=== PATIENT | male | born 1960 | race Caucasian/White ===

== ENCOUNTER 2022-12-14 21:30 | Inpatient (IN) ==
--- NOTE | 2022-12-14 21:49 | Emergency Department Note ---
HPI General Chief complaint: Extremity Problem,Nontraumatic Stated complaint: edema to lower extremeties Time Seen by Provider: 12/14/22 21:46 Source: patient Mode of arrival: wheelchair Limitations: physical limitation History of Present Illness HPI Narrative: Narrative: Patient presents ED with complaints of bilateral leg swelling x3 days. He states that he was diagnosed with a blood clot in his leg a couple days agoT. He states he was started on a blood thinner. However he does not know the name of the blood thinner he is on. When asked what hospital diagnosed with a blood clot he states it was not a hospital. when asked upon further questioning he said it was his friend who diagnosed him a lot. He states that he has heart failure and has been out of his water pill for 3 days. He states that his legs are now weeping and again he states is because of a blood clot. He denies cardiac chest pain, heart palpitation, hemoptysis, shortness of breath, cough, sputum production. Patient states he has not called his PCP. Patient denies any other alleviating or aggravating factors. Related Data Allergies Allergy/AdvReac Type Severity Reaction Status Date / Time No Known Drug Allergies Allergy Unverified 12/14/22 22:10 Review of Systems ROS ROS Narrative: Narrative: All systems ED: reviewed and negative except as stated. [facility] Narrative Patient History Narrative: Narrative: Medical/Surgical/Family History All Active Problems (Updated 12/14/22 @ 23:39 by Yuriy Steen DO) Sepsis (Acute) CHF exacerbation (Acute) Bilateral pleural effusion (Acute) Pneumonia (Acute) Social History Smoking Status: Current every day smoker Exam Narrative Narrative: Narrative: General Limitations: physical limitation General appearance: Absent in distress ENT ENT: Present normal oropharynx and mucous membranes moist Chest Chest: Present normal inspection; Absent tenderness Respiratory Respiratory: Present normal lung sounds bilaterally; Absent respiratory distress, wheezes or stridor Cardiovascular Cardiovascular: Present normal rhythm and tachycardia Adbominal Abdominal: Present soft and normal bowel sounds; Absent tenderness Extremities Extremities: Present normal inspection; Absent tenderness Expanded Lower Extremity Lower leg: Present swelling and erythema; Absent tenderness Neurological Neurological: Present alert and oriented X3 Psychiatric Psychiatric: Present normal affect and normal mood Skin Skin: Present warm (WNL) and intact Course Course Course Narrative: Patient was evaluated for bilateral lower extremity edema. Ultrasound of the bilateral lower extremity negative for DVT. Patient was fluid overloaded and chest x-ray showed that he did have a pneumonia and some bilateral pleural effusion. Blood cultures were obtained and patient was started on IV Rocephin and oral azithromycin. He was also given IV Lasix of 20 mg due to his soft blood pressure. However his blood pressure did improve to 130 systolically. Patient was tachypneic, tachycardic and had elevated white cell count. Did meet sepsis criteria. Patient maintain adequate oxygen saturation on room air without any hypoxia. EKG was unremarkable. Due to his CHF exacerbation and pneumonia with fluid overload and BNP over 10,000 recommend the patient be admitted to the hospital. Case was discussed with hospitalist was agreed to admit the patient. Plan of care was discussed with patient expressed verbal understanding and agreement. Reevaluation(s) Reevaluation #1: Patient remains hemodynamically stable. No new complaints at this time Time: 22:50 Consultations Consultation #1: Case discussed with hospitalist, Dr. Trujillo, who has agreed to admit the patient to the hospital Time: 23:50 Vital Signs Vital signs: Vital Signs Temperature 97.1 F 12/14/22 21:31 Pulse Rate 118 H 12/14/22 21:31 Respiratory Rate 20 12/14/22 21:31 Blood Pressure 74/50 12/14/22 21:31 Pulse Oximetry (%) 98 12/14/22 21:31 Oxygen Delivery Method Room Air 12/14/22 21:31 Temperature 97.1 F 12/14/22 21:31 Pulse Rate 40 L 12/14/22 23:37 Respiratory Rate 37 H 12/14/22 23:37 Blood Pressure 134/119 12/14/22 23:37 Pulse Oximetry (%) 97 12/14/22 23:37 Oxygen Delivery Method Room Air 12/14/22 21:31 [facility] MDM Narrative Medical decision making narrative: Narrative: Sepsis Sepsis Identified: Yes Time Zero: 2239 Differential Diagnosis Differential Diagnosis: CHF exacerbation, DVT Medical Records Medical records reviewed: Yes I reviewed the patient's medical records. Lab Data Lab results reviewed: Yes I reviewed the patient's lab results. 12/14/22 22:02 Labs: Lab Results 12/14/22 12/14/22 12/14/22 Range/Units 21:47 21:48 22:01 WBC (4.5-11.0) K/mcL RBC (4.63-6.08) M/mcL Hgb (13.7-17.5) g/dL Hct (40.1-51.0) % POC Hct 47.0 (41-55) MCV (80.0-100.0) fL MCH (26.0-34.0) pg MCHC (31.0-36.0) g/dL RDW (11.5-14.5) % Plt Count (140-440) K/mcL MPV (8.8-12.5) fL Immature Gran % (Auto) (0.0-0.5) % Neut % (Auto) (38.0-78.0) % Lymph % (Auto) (15.5-49.0) % [place] % (Auto) (1.0-12.0) % Eos % (Auto) (0.0-7.0) % Baso % (Auto) (0.0-2.0) % Lymph # (Auto) (1.50-4.80) K/mcL [place] # (Auto) (0.10-0.90) K/mcL Eos # (Auto) (0.00-0.70) K/mcL Baso # (Auto) (0.00-0.30) K/mcL Immature Gran # (0.00-0.05) K/mcl Absolute Neutrophils (1.80-8.00) K/mcL POC Sodium 134 (133-145) POC Potassium 5.0 (3.3-5.1) POC Chloride 106 (96-108) POC Total CO2 22.0 (22-30) POC BUN 49 H (6-20) POC Creatinine 2.9 H (0.6-1.2) POC Glucose 115 H (70-105) POC WB Ioniz Calcium 1.09 L (1.16-1.32) NT-Pro-B Natriuret Pep 50321.0 H (<125.0) pg/mL POC Troponin I 0.06 (0.00-0.08) 12/14/22 12/14/22 Range/Units 22:02 22:16 WBC 17.4 H (4.5-11.0) K/mcL RBC 5.53 (4.63-6.08) M/mcL Hgb 14.9 (13.7-17.5) g/dL Hct 46.1 (40.1-51.0) % POC Hct (41-55) MCV 83.4 (80.0-100.0) fL MCH 26.9 (26.0-34.0) pg MCHC 32.3 (31.0-36.0) g/dL RDW 19.2 H (11.5-14.5) % Plt Count 297 (140-440) K/mcL MPV 10.3 (8.8-12.5) fL Immature Gran % (Auto) 1.9 H (0.0-0.5) % Neut % (Auto) 78.3 H (38.0-78.0) % Lymph % (Auto) 13.5 L (15.5-49.0) % [place] % (Auto) 5.2 (1.0-12.0) % Eos % (Auto) 0.8 (0.0-7.0) % Baso % (Auto) 0.3 (0.0-2.0) % Lymph # (Auto) 2.35 (1.50-4.80) K/mcL [place] # (Auto) 0.91 H (0.10-0.90) K/mcL Eos # (Auto) 0.14 (0.00-0.70) K/mcL Baso # (Auto) 0.06 (0.00-0.30) K/mcL Immature Gran # 0.33 H (0.00-0.05) K/mcl Absolute Neutrophils 13.61 H (1.80-8.00) K/mcL POC Sodium (133-145) POC Potassium (3.3-5.1) POC Chloride (96-108) POC Total CO2 (22-30) POC BUN (6-20) POC Creatinine (0.6-1.2) POC Glucose (70-105) POC WB Ioniz Calcium (1.16-1.32) NT-Pro-B Natriuret Pep (<125.0) pg/mL POC Troponin I 0.04 (0.00-0.08) ED POC Tests ED POC Tests: ELISA - Influenza A Negative ELISA - Influenza B Negative ELISA - SARS Antigen Negative Radiology Data Radiology results reviewed: Yes I reviewed the patient's radiology results. Radiology results narrative: Obtained with image reviewed myself concerning for pneumonia and pleural effusion Bilateral lower extremity venous ultrasound obtained, no acute DVT EKG Data EKG #1: EKG attestation: Yes I reviewed and interpreted this EKG. Rate: tachycardia Rhythm: A.Fib [place]/QRS: left axis deviation Heart block present: None ST segment elevation in: None ST segment depression in: None QTc: prolonged Interpretation: no acute changes and nonspecific ST-T wave changes Core Measures AMI Core Measures Followed: Yes Discharge Plan Patient/Caregiver Discharge Instructions Pt seen by TRANSFERRER/PA only: No Clinical Impression: Sepsis, CHF exacerbation, Bilateral pleural effusion, Pneumonia Patient Disposition: Xfer As Outpt/Obs ([facility]) Condition: Fair Follow up with: No,PCP [Primary Care Provider] -
[2022-12-14 21:53] LABS: POC Calcium, Ionized 1.09 (1.16-1.32); POC Creatinine 2.9 (0.6-1.2)
[2022-12-14 22:27] LABS: Basophils # (Auto) 0.06 K/mcL (0.00-0.30); Basophils % (Auto) 0.3 % (0.0-2.0); Eosinophils # (Auto) 0.14 K/mcL (0.00-0.70); Eosinophils % (Auto) 0.8 % (0.0-7.0); Hematocrit 46.1 % (40.1-51.0); Hemoglobin 14.9 g/dL (13.7-17.5); Lymphocytes # (Auto) 2.35 K/mcL (1.50-4.80); Lymphocytes % (Auto) 13.5 % (15.5-49.0); Mean Cell Volume 83.4 fL (80.0-100.0); Mean Corpuscular HGB Conc 32.3 g/dL (31.0-36.0); Mean Platelet Volume 10.3 fL (8.8-12.5); Monocytes # (Auto) 0.91 K/mcL (0.10-0.90); Monocytes % (Auto) 5.2 % (1.0-12.0); Neutrophils % (Auto) 78.3 % (38.0-78.0); Platelet Count 297 K/mcL (140-440); RBC 5.53 M/mcL (4.63-6.08); Red Cell Distribution Width 19.2 % (11.5-14.5); WBC 17.4 K/mcL (4.5-11.0)
[2022-12-14] MEDS ORDERED: FUROSEMIDE 20 MG/2 ML VIAL IV ONE (23:01)
[2022-12-14] MEDS ORDERED: FUROSEMIDE 100 MG/10 ML VIAL IV ONE (23:01)
[2022-12-14] MEDS ORDERED: AZITHROMYCIN 250 MG TABLET PO ONE (23:36)
[2022-12-14] MEDS ORDERED: cefTRIAXone 2 GM in DEXTROSE 5% IN WATER 50 ML IV ONE (23:36)
[2022-12-14] MEDS ORDERED: PROMETHAZINE 25 MG/ML VIAL IM PRN (23:53)
[2022-12-14] MEDS ORDERED: ONDANSETRON 4 MG/2 ML VIAL IV PRN (23:53)
[2022-12-15] MEDS ORDERED: DOPamine 400 MG in PREMIX 1 BAG IV SCH (01:30)
[2022-12-15] MEDS: 0.9 % SODIUM CHLORIDE 10 ML SYRINGE IV SCH ×6 (02:00→23:53)
[2022-12-15] MEDS: ACETAMINOPHEN 325 MG TABLET PO PRN ×2 (02:25→09:19)
--- NOTE | 2022-12-15 02:53 | Ultrasound Report ---
CLINICAL INFORMATION: Bilateral pain and swelling erythema in the lower examination COMPARISON: None. FINDINGS: The entire deep venous system, of both lower extremities, including the common femoral, superficial femoral, popliteal and paired trifurcation calf veins are easily compressible and show normal venous blood flow on color and spectral Doppler. No evidence of thrombus IMPRESSION: No evidence of deep vein thrombosis in either lower extremity. Mildly enlarged benign appearing inguinal lymph nodes seen bilaterally. These are likely reactive lymph nodes due to cellulitis Interpreted and Authenticated by: Roshan Russell 12/15/22
--- NOTE | 2022-12-15 02:58 | XRay Report ---
CLINICAL INFORMATION: Shortness of breath COMPARISON: 10/21/2022 TECHNIQUE: Portable FINDINGS: Moderate cardiomegaly is unchanged. Aortic valve prostheses in stable position. There is a wire fragment overlying the left ventricular border which is presumably from a prior pacemaker. Mediastinum and pulmonary vessels are normal. Azygos lobe noted in the right upper lung-a normal variant. Small region of airspace disease seen in the left base is likely developing infiltrate. A small right pleural effusion noted. IMPRESSION: Small left basilar infiltrate. Suggest follow-up two-view chest x-ray next 1-2 days to better assess the lower lobes Interpreted and Authenticated by: Roshan Russell 12/15/22
[2022-12-15] MEDS: 0.9 % SODIUM CHLORIDE 250 ML IV SCH ×2 (06:34→13:32)
[2022-12-15] MEDS ORDERED: ACETAMINOPHEN 325 MG TABLET PO PRN (07:40)
[2022-12-15] MEDS ORDERED: LACTULOSE 20 GM/30 ML ORAL.SOL PO PRN (07:40)
[2022-12-15] MEDS ORDERED: SENNOSIDES 1 TABLET PO PRN (07:40)
[2022-12-15 08:52] LABS: Basophils # (Auto) 0.05 K/mcL (0.00-0.30); Basophils % (Auto) 0.4 % (0.0-2.0); Eosinophils # (Auto) 0.16 K/mcL (0.00-0.70); Eosinophils % (Auto) 1.2 % (0.0-7.0); Hematocrit 44.8 % (40.1-51.0); Hemoglobin 14.5 g/dL (13.7-17.5); Lymphocytes # (Auto) 2.63 K/mcL (1.50-4.80); Lymphocytes % (Auto) 20.1 % (15.5-49.0); Mean Cell Volume 82.8 fL (80.0-100.0); Mean Corpuscular HGB Conc 32.4 g/dL (31.0-36.0); Mean Platelet Volume 10.4 fL (8.8-12.5); Monocytes # (Auto) 0.76 K/mcL (0.10-0.90); Monocytes % (Auto) 5.8 % (1.0-12.0); Neutrophils % (Auto) 71.8 % (38.0-78.0); Platelet Count 297 K/mcL (140-440); RBC 5.41 M/mcL (4.63-6.08); Red Cell Distribution Width 19.7 % (11.5-14.5); WBC 13.1 K/mcL (4.5-11.0)
[2022-12-15] MEDS ORDERED: LEVOFLOXACIN 750 MG/150 ML BAG IV SCH (09:00)
[2022-12-15 09:04] LABS: Blood Urea Nitrogen 44 mg/dL (6-20); Calcium 8.2 mg/dL (8.6-10.4); Carbon Dioxide 18 mmol/L (22-30); Chloride 101 mmol/L (96-108); Glomerular Filtration Rate 28; Glucose 78 mg/dL (70-105)
[2022-12-15] MEDS: DOCUSATE SODIUM 100 MG CAPSULE PO SCH ×2 (09:20→21:06)
[2022-12-15] MEDS: ENOXAPARIN 40 MG/0.4 ML SYRINGE SQ SCH (09:20)
[2022-12-15] MEDS: ASPIRIN 81 MG TAB.CHEW PO SCH (09:20)
--- NOTE | 2022-12-15 09:27 | Internal Med History&Physical ---
HPI History of Present Illness Patient information: Note initiated : 12/15/22 at 9:18 am Service Date, if different from initiated Date: [] Patient: Billy Gomez 62 y/o M admitted on 12/15/22 for edema to lower extremeties. Chief Complaint: [Weakness, FTT] Chief complaint: Pedal edema History of present illness: Mr. Gomez is a 62 year old obese male smoker with a complex past medical history significant for congestive heart failure, COPD, mitral valve repair, diabetes mellitus type 2 and BPH who presents to the hospital with vague complaints. When I evaluated the patient this morning, he was not able to talk much due to oral thrush. In general, the patient is quite a poor historian. History is mainly obtained through chart review and from nursing. He presented to the ER complaining of worsening pedal edema due to what he believed was VTE. There is no history of the patient recently being prescribed anticoagulation therapy. Venous duplex was obtained on presentation which was negative for VTE in both extremities. On arrival, the patient was hemodynamically tenuous as he was hypotensive with an SBP in the 70s and 80s and was tachycardic with a heart rate of 110. He was found to have an elevated white blood cell count of 17.4 and a creatinine of 2.9. The hospitalist service was asked admit the patient for further management and evaluation of his suspected sepsis of unclear etiology. Review of Systems All systems: reviewed and no additional remarkable complaints except as stated Constitutional Constitutional: Present as per HPI EENT Eyes: Present as per HPI; Absent blurry vision Cardiovascular Cardiovascular: Present as per HPI; Absent chest pain, dyspnea, dyspnea on exertion, leg edema or palpatations Respiratory Respiratory: Present as per HPI; Absent cough, dyspnea, dyspnea on exertion, wheezing or stridor Gastrointestinal Gastrointestinal: Present as per HPI; Absent abdominal pain, diarrhea, dysphagia, hematemesis, melena, nausea or vomiting Musculoskeletal Musculoskeletal: Present as per HPI; Absent joint swelling, limited range of motion, muscle cramps, muscle weakness or myalgias Integumentary Integumentary: Present as per HPI; Absent erythema, new lesions, rash or wounds Neurological Neurological: Present as per HPI; Absent abnormal gait, behavioral changes, focal weakness, headache(s), loss of vision, numbness, sensory deficit or syncope Endocrine Endocrine: Absent change in body appearance, fatigue or heat intolerance Hematologic/Lymphatic Hematologic/Lymphatic: Present as per HPI PFSH PFSH All Active Problems (Updated 12/15/22 @ 09:25 by Shayy Amador MD) Smoker (Acute) COPD exacerbation (Acute) DM2 (diabetes mellitus, type 2) (Acute) Congestive heart failure (Acute) Pedal edema (Acute) Hypotension (Acute) AGUILA (acute kidney injury) (Acute) Cellulitis (Acute) Sepsis (Acute) CHF exacerbation (Acute) Bilateral pleural effusion (Acute) Pneumonia (Acute) Social History smoking status: Current every day smoker MEDS/ALLERGIES Home Medications and Allergies Home Medications Medication Instructions Recorded Confirmed Type Jardiance 10 mg PO DAILY 12/15/22 12/15/22 History acetaminophen 325 mg capsule 500 mg PO Q6H PRN Pain 12/15/22 12/15/22 History (Tylenol) aspirin 81 mg capsule 81 mg PO DAILY 12/15/22 12/15/22 History atorvastatin 40 mg tablet 40 mg PO QHS 12/15/22 12/15/22 History budesonide-formoterol HFA 160 2 puff inhalation Q12H 12/15/22 12/15/22 History mcg-4.5 mcg/actuation aerosol inhaler cetirizine 10 mg tablet 10 mg PO QDAY 12/15/22 12/15/22 History famotidine 20 mg tablet 20 mg PO BID 12/15/22 12/15/22 History metoprolol succinate 25 mg 25 mg PO BID 12/15/22 12/15/22 History tablet,extended release 24 hr naproxen 500 mg tablet 500 mg PO BID 12/15/22 12/15/22 History nitroglycerin 0.4 mg sublingual 0.4 mg sublingual Q5M PRN Chest 12/15/22 12/15/22 History tablet Pain potassium chloride 30 mEq/15 mL 30 meq PO BID 12/15/22 12/15/22 History oral liquid sacubitril 24 mg-valsartan 26 mg 0.5 tab PO BID 12/15/22 12/15/22 History tablet (Entresto) spironolactone 25 mg tablet 12.5 mg PO DAILY 12/15/22 12/15/22 History torsemide 40 mg tablet 40 mg PO QDAY 12/15/22 12/15/22 History Allergies Allergy/AdvReac Type Severity Reaction Status Date / Time No Known Drug Allergies Allergy Unverified 12/14/22 22:10 EXAM Constitutional Vitals: Temp Pulse Resp BP Pulse Ox O2 Del Method O2 Flow Rate 97.0 F 55 L 26 H 82/56 97 Nasal Cannula 1 12/15/22 08:01 12/15/22 06:01 12/15/22 09:07 12/15/22 09:07 12/15/22 09:07 12/15/22 09:07 12/15/22 09:07 General appearance: average body habitus Head Head exam: Present atraumatic, normal inspection and normocephalic Eye Eye exam: Present EOMI, normal appearance and PERRL; Absent conjunctival injection ENT ENT exam: Present mucous membranes dry Neck Neck exam: Present full ROM; Absent lymphadenopathy Respiratory Respiratory exam: Present normal respiratory exam and CTAB; Absent decreased breath sounds, respiratory distress or wheezes Cardiovascular Cardiovascular exam: Present RRR and tachycardia; Absent JVD GI/Abdominal GI/Abdominal exam: Present normal bowel sounds, soft and distended; Absent diminished bowel sounds, guarding, mass, rebound or tenderness Neurological Exam Neurological exam: Absent alert Psychiatric Psychiatric exam: Present normal affect and normal mood Skin Skin exam: Present intact and warm; Absent erythema, pallor, petechiae or rash DATA Data Completed and Pending Labs: Labs from last 24 hours 12/15/22 12/15/22 12/15/22 08:42 07:55 07:55 WBC RBC Hgb Hct POC Hct MCV MCH MCHC RDW Plt Count MPV Immature Gran % (Auto) Neut % (Auto) Lymph % (Auto) [place] % (Auto) Eos % (Auto) Baso % (Auto) Lymph # (Auto) [place] # (Auto) Eos # (Auto) Baso # (Auto) Immature Gran # Absolute Neutrophils POC pH 7.38 POC pCO2 31.5 L POC pO2 79 L POC HCO3 18.9 L POC ABG Base Excess -6.0 L ABG Lactic Acid 0.8 VBG Lactic Acid 1.0 Hgb O2 Saturation 96.0 POC Sodium Sodium 132 L POC Potassium Potassium 4.8 POC Chloride Chloride 101 Carbon Dioxide 18 L POC Total CO2 20.0 L Anion Gap 13.0 POC BUN BUN 44 H Creatinine 2.4 H POC Creatinine GFR Calculation 28 Glucose 78 POC Glucose Calcium 8.2 L POC WB Ioniz Calcium NT-Pro-B Natriuret Pep POC Troponin I 12/15/22 12/14/22 12/14/22 07:55 22:16 22:02 WBC 13.1 H 17.4 H RBC 5.41 5.53 Hgb 14.5 14.9 Hct 44.8 46.1 POC Hct MCV 82.8 83.4 MCH 26.8 26.9 MCHC 32.4 32.3 RDW 19.7 H 19.2 H Plt Count 297 297 MPV 10.4 10.3 Immature Gran % (Auto) 0.7 H 1.9 H Neut % (Auto) 71.8 78.3 H Lymph % (Auto) 20.1 13.5 L [place] % (Auto) 5.8 5.2 Eos % (Auto) 1.2 0.8 Baso % (Auto) 0.4 0.3 Lymph # (Auto) 2.63 2.35 [place] # (Auto) 0.76 0.91 H Eos # (Auto) 0.16 0.14 Baso # (Auto) 0.05 0.06 Immature Gran # 0.09 H 0.33 H Absolute Neutrophils 9.42 H 13.61 H POC pH POC pCO2 POC pO2 POC HCO3 POC ABG Base Excess ABG Lactic Acid VBG Lactic Acid Hgb O2 Saturation POC Sodium Sodium POC Potassium Potassium POC Chloride Chloride Carbon Dioxide POC Total CO2 Anion Gap POC BUN BUN Creatinine POC Creatinine GFR Calculation Glucose POC Glucose Calcium POC WB Ioniz Calcium NT-Pro-B Natriuret Pep POC Troponin I 0.04 12/14/22 12/14/22 12/14/22 22:01 21:48 21:47 WBC RBC Hgb Hct POC Hct 47.0 MCV MCH MCHC RDW Plt Count MPV Immature Gran % (Auto) Neut % (Auto) Lymph % (Auto) [place] % (Auto) Eos % (Auto) Baso % (Auto) Lymph # (Auto) [place] # (Auto) Eos # (Auto) Baso # (Auto) Immature Gran # Absolute Neutrophils POC pH POC pCO2 POC pO2 POC HCO3 POC ABG Base Excess ABG Lactic Acid VBG Lactic Acid Hgb O2 Saturation POC Sodium 134 Sodium POC Potassium 5.0 Potassium POC Chloride 106 Chloride Carbon Dioxide POC Total CO2 22.0 Anion Gap POC BUN 49 H BUN Creatinine POC Creatinine 2.9 H GFR Calculation Glucose POC Glucose 115 H Calcium POC WB Ioniz Calcium 1.09 L NT-Pro-B Natriuret Pep 74960.0 H POC Troponin I 0.06 Preliminary micro results at discharge 12/14/22 00:09 Blood Culture - Preliminary Blood A/P Assessment and plan (1) Sepsis: Status: Acute Qualifiers: Sepsis acute organ dysfunction status: without acute organ dysfunction Sepsis type: sepsis due to unspecified organism Qualified Code(s): A41.9 - Sepsis, unspecified organism (2) Pneumonia: Status: Acute Qualifiers: Laterality: unspecified laterality Lung location: unspecified part of lung Pneumonia type: due to unspecified organism Qualified Code(s): J18.9 - Pneumonia, unspecified organism (3) Cellulitis: Status: Acute (4) AGUILA (acute kidney injury): Status: Acute (5) Hypotension: Status: Acute (6) Pedal edema: Status: Acute (7) Congestive heart failure: Status: Acute (8) DM2 (diabetes mellitus, type 2): Status: Acute (9) COPD exacerbation: Status: Acute (10) Smoker: Status: Acute Narrative A/P Narrative: The patient presents as a septic picture as he is hypotensive, tachycardic, with an elevated white blood cell count of 17,000. His lower extremities are erythematous, edematous, warm to touch and tender upon palpation. He does have areas of skin breakdown. A CT of the chest was performed this morning which was concerning for lower lobe infiltrates in the setting of groundglass opacities however the final radiology read is pending. His antibiotic coverage will be broadened from Levaquin to Zosyn. We will perform MRSA screen and follow-up with blood cultures. The patient has not needed dopamine infusion which was prescribed overnight. In the setting of hypotension and AGUILA, we are holding his home Entresto, Aldactone, torsemide and Toprol-XL. Continue IV fluid resuscitation. The patient's lactic acid was within normal limits at 1.0 today. Monitor on telemetry. He will be kept n.p.o. in case he needs BiPAP as he has a history of COPD and continues to smoke. His ABG was reassuring with a pH of 7.38, PCO2 of 31.5, and PaO2 of 79. Time Spent With Patient Time: Total time spent is greater than 50% in coordination of care (as documented) at patient's floor/unit and/or counseling patient: Initial: Total time with patient: 75 - 90 minutes Critical Care Time: Yes QUALITY Stroke Symptom Onset Unknown: No VTE Deep Vein Thrombosis/Pulmonary Embolism Present on Admission: No
--- NOTE | 2022-12-15 09:47 | Cat Scan Report ---
CLINICAL INFORMATION: Dyspnea. Current smoker. COMPARISON: CTA chest abdomen and pelvis 06/08/2019 TECHNIQUE: 0.625 mm helical slices were obtained from the lung apices through the lung bases. Following reconstruction, 2.5 mm sagittal, coronal and axial reformatted images were processed and reviewed at multiple windows and levels. 7 mm MIP reconstructions were obtained through the lungs to optimize nodule detection.The exam was performed using radiation dose optimization techniques including, but not limited to, automated exposure control, adjustment of the mA and/or kV according to patient size and use of iterative reconstruction technique. FINDINGS: Pulmonary parenchymal windows show moderate subsegmental atelectasis in both posterior lower lobes. The pulmonary vasculature is mildly distended with mild edema in the interlobular septa compatible with CHF. Small right pleural effusion noted.. Pleural spaces are unremarkable-no effusions. Mediastinal windows show the heart is is moderately enlarged. Mitral valve prosthesis is satisfactory position. Sternotomy changes noted. There is scattered calcific plaque in the coronary arteries. Right aortic arch appreciated-a congenital variant. The thoracic aorta is normal diameter however. There is no adenopathy in the mediastinal, hilar or axillary regions. The esophagus is normal. Thyroid unremarkable. Bones and soft tissues of the chest wall show no abnormality. Images through the superior abdomen are unremarkable. IMPRESSION: 1. Mild CHF. 2. Moderate subsegmental atelectasis-both posterior lower lobes. 3. Small right pleural effusion. 4. Right aortic arch-a congenital variant Interpreted and Authenticated by: Roshan Russell 12/15/22
[2022-12-15] MEDS: LACTATED RINGERS 1,000 ML IV SCH ×2 (09:59→20:01)
[2022-12-15] MEDS: PIPERACILLIN SODIUM/TAZOBACTAM 3.375 GM in DEXTROSE 5% IN WATER 50 ML IV SCH ×4 (10:22→23:52)
--- NOTE | 2022-12-15 12:03 | EKG ---
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 Measurements Intervals Sebastian Rate: 120 P: MO: QRS: -39 QRSD: 111 T: 103 QT: 337 QTc: 478 Interpretive Statements Atrial fibrillation Left axis deviation Low voltage, extremity leads Nonspecific T abnormalities, lateral leads Borderline prolonged QT interval Electronically Signed On 12-15-2022 12:03:26 PST by Roshan Hill M.D. /[facility] [place]/M0/[id number]
[2022-12-15] MEDS ORDERED: DOPamine 400 MG in PREMIX 1 BAG IV PRN (12:45)
[2022-12-15] MEDS: NYSTATIN 500,000 UNITS/5 ML ORAL.SUSP SSP SCH ×3 (12:49→21:06)
[2022-12-15] MEDS: IPRATROPIUM/ALBUTEROL 3 ML AMPUL.NEB NEB SCH ×2 (13:04→19:00)
[2022-12-15 17:07] LABS: Blood Urea Nitrogen 45 mg/dL (6-20); Calcium 8.5 mg/dL (8.6-10.4); Carbon Dioxide 21 mmol/L (22-30); Chloride 101 mmol/L (96-108); Glomerular Filtration Rate 28; Glucose 143 mg/dL (70-105)
[2022-12-15] MEDS: BUDESONIDE 0.5 MG/2 ML AMPUL.NEB NEB SCH (19:00)
[2022-12-15] MEDS: HYDROcodone/APAP 5/325MG TABLET PO PRN (19:46)
[2022-12-15] MEDS ORDERED: NOREPINEPHRINE BITARTRATE 8 MG in 0.9 % SODIUM CHLORIDE 242 ML IV SCH (21:00)
[2022-12-15] MEDS: ATORVASTATIN 40 MG TABLET PO SCH (21:06)
[2022-12-15] MEDS ORDERED: NOREPINEPHRINE BITARTRATE 4 MG/4 ML VIAL IV ONE (21:11)
[2022-12-16] MEDS: IPRATROPIUM/ALBUTEROL 3 ML AMPUL.NEB NEB SCH ×4 (01:00→18:28)
[2022-12-16 02:25] LABS: Blood Urea Nitrogen 43 mg/dL (6-20); Calcium 8.4 mg/dL (8.6-10.4); Carbon Dioxide 20 mmol/L (22-30); Chloride 98 mmol/L (96-108); Glomerular Filtration Rate 31; Glucose 112 mg/dL (70-105)
[2022-12-16] MEDS: 0.9 % SODIUM CHLORIDE 10 ML SYRINGE IV SCH ×3 (05:54→20:52)
[2022-12-16] MEDS: PIPERACILLIN SODIUM/TAZOBACTAM 3.375 GM in DEXTROSE 5% IN WATER 50 ML IV SCH ×4 (05:54→23:37)
[2022-12-16] MEDS: 0.9 % SODIUM CHLORIDE 250 ML IV SCH ×5 (06:40→21:34)
[2022-12-16] MEDS ORDERED: NOREPINEPHRINE BITARTRATE 8 MG in 0.9 % SODIUM CHLORIDE 242 ML IV PRN (07:15)
[2022-12-16] MEDS: BUDESONIDE 0.5 MG/2 ML AMPUL.NEB NEB SCH ×3 (07:40→21:33)
[2022-12-16] MEDS: ENOXAPARIN 40 MG/0.4 ML SYRINGE SQ SCH (08:17)
[2022-12-16] MEDS: ASPIRIN 81 MG TAB.CHEW PO SCH (08:17)
[2022-12-16] MEDS: predniSONE 20 MG TABLET PO SCH (08:17)
[2022-12-16] MEDS: DOCUSATE SODIUM 100 MG CAPSULE PO SCH ×2 (08:17→20:52)
[2022-12-16] MEDS: NYSTATIN 500,000 UNITS/5 ML ORAL.SUSP SSP SCH ×3 (08:17→20:52)
[2022-12-16 09:11] LABS: Basophils # (Auto) 0.06 K/mcL (0.00-0.30); Basophils % (Auto) 0.5 % (0.0-2.0); Eosinophils # (Auto) 0.18 K/mcL (0.00-0.70); Eosinophils % (Auto) 1.6 % (0.0-7.0); Hematocrit 44.2 % (40.1-51.0); Hemoglobin 14.2 g/dL (13.7-17.5); Lymphocytes % (Auto) 23.3 % (15.5-49.0); Mean Cell Volume 82.5 fL (80.0-100.0); Mean Corpuscular HGB Conc 32.1 g/dL (31.0-36.0); Mean Platelet Volume 9.8 fL (8.8-12.5); Monocytes # (Auto) 1.08 K/mcL (0.10-0.90); Monocytes % (Auto) 9.3 % (1.0-12.0); Neutrophils % (Auto) 64.8 % (38.0-78.0); Platelet Count 269 K/mcL (140-440); RBC 5.36 M/mcL (4.63-6.08); Red Cell Distribution Width 19.1 % (11.5-14.5); WBC 11.6 K/mcL (4.5-11.0)
[2022-12-16] MEDS: HYDROcodone/APAP 5/325MG TABLET PO PRN ×2 (10:50→19:11)
--- NOTE | 2022-12-16 11:44 | Internal Med Progress Note ---
SUBJECTIVE Subjective Patient information: Note initiated : 12/16/22 at 11:41 am Service Date, if different from initiated Date: [] Patient: Billy Gomez 62 y/o M admitted on 12/15/22 for edema to lower extremeties. Chief Complaint: [AMS] Principal diagnosis: Sepsis Interval history: The patient is much more alert, interactive and conversive today. He states that his legs are still painful and he is unable to ambulate. The patient states that his oral thrush is better and is able to have more p.o. intake. Discussed the case with RN and social work. Constitutional Vitals: Vital Signs Temp Pulse Resp BP Pulse Ox O2 Del Method O2 Flow Rate 97.8 F 67 20 109/83 94 Room Air 2 12/16/22 08:01 12/16/22 10:01 12/16/22 11:01 12/16/22 11:01 12/16/22 11:01 12/16/22 08:00 12/15/22 22:01 Period Temp Pulse Resp BP Sys/Whittaker Pulse Ox O2 Del Method O2 Flow Rate Last 24 Hr 97.1 F-98.0 F 29-117 16-43 76-116/45-89 82-100 Nasal Cannula- Room Air 2-4 Intake and Output 12/15/22 12/16/22 12/16/22 19:59 03:59 11:59 Intake Total 400 1199 410 Output Total 925 450 150 Balance -525 749 260 Weight 118.796 kg Intake & Output: Intake & Output 12/15/22 12/16/22 12/16/22 19:59 03:59 11:59 Intake Total 400 1199 410 Output Total 925 450 150 Balance -525 749 260 Weight 118.796 kg Intake: IV 100 1199 50 DOPamine 400 MG In Premix 1 Bag 9 0 @ 5 MCG/KG/MIN 22.113 mls/hr IV .[id number] PRN Rx#:[id number] Lactated Ringers 1,000 ml @ 100 1140 0 mls/hr IV .Q10H [facility] Rx#: [id number] Zosyn 3.375 gm In Dextrose 5% 100 50 50 in Water 50 ml @ 100 mls/hr IV Q6H [facility] Rx#:[id number] Oral 300 360 Output: Urine Catheter Amount 925 450 150 Other: Meal Dinner Breakfast Percent of Meal Consumed 50% 100% Feeding Ability Assist with Tray Set Up Independent Urine Appearance Cloudy Cloudy Cloudy Uretheral (Joyce) Cloudy Cloudy Urine Color Bright Yellow Bright Yellow Bright Yellow Uretheral (Joyce) Bright Yellow Bright Yellow Head Head exam: Present atraumatic and normal inspection Eye Eye exam: Present normal appearance ENT ENT exam: Present mucous membranes moist, normal exam and normal external ear exam Neck Neck exam: Present normal inspection Respiratory Respiratory exam: Present normal respiratory exam Cardiovascular Cardiovascular exam: Present normal rate and rhythm GI/Abdominal GI/Abdominal exam: Present normal bowel sounds Back Exam Back exam: Present normal inspection Neurological Exam Neurological exam: Present alert and oriented X3 Skin Skin exam: Present intact and warm OBJ DATA Labs 12/16/22 08:26 12/16/22 01:10 Labs: Abnormal Lab Results 12/16/22 12/16/22 12/15/22 08:26 01:10 16:05 WBC 11.6 H RDW 19.1 H Immature Gran % (Auto) Neut % (Auto) Lymph % (Auto) [place] # (Auto) 1.08 H Immature Gran # 0.06 H Absolute Neutrophils POC pCO2 POC pO2 POC HCO3 POC Total CO2 POC ABG Base Excess Sodium 131 L Carbon Dioxide 20 L 21 L POC BUN BUN 43 H 45 H Creatinine 2.2 H 2.4 H POC Creatinine Glucose 112 H 143 H POC Glucose Calcium 8.4 L 8.5 L POC WB Ioniz Calcium NT-Pro-B Natriuret Pep 12/15/22 12/15/22 12/15/22 08:42 07:55 07:55 WBC 13.1 H RDW 19.7 H Immature Gran % (Auto) 0.7 H Neut % (Auto) Lymph % (Auto) [place] # (Auto) Immature Gran # 0.09 H Absolute Neutrophils 9.42 H POC pCO2 31.5 L POC pO2 79 L POC HCO3 18.9 L POC Total CO2 20.0 L POC ABG Base Excess -6.0 L Sodium 132 L Carbon Dioxide 18 L POC BUN BUN 44 H Creatinine 2.4 H POC Creatinine Glucose POC Glucose Calcium 8.2 L POC WB Ioniz Calcium NT-Pro-B Natriuret Pep 12/14/22 12/14/22 12/14/22 22:02 22:01 21:48 WBC 17.4 H RDW 19.2 H Immature Gran % (Auto) 1.9 H Neut % (Auto) 78.3 H Lymph % (Auto) 13.5 L [place] # (Auto) 0.91 H Immature Gran # 0.33 H Absolute Neutrophils 13.61 H POC pCO2 POC pO2 POC HCO3 POC Total CO2 POC ABG Base Excess Sodium Carbon Dioxide POC BUN 49 H BUN Creatinine POC Creatinine 2.9 H Glucose POC Glucose 115 H Calcium POC WB Ioniz Calcium 1.09 L NT-Pro-B Natriuret Pep 47199.0 H Meds: Medications Acetaminophen (Acetaminophen 325 Mg Tablet) 650 mg PO Q6HP PRN; Protocol PRN Reason: Per Pain Protocol/Fever > 101 Hydrocodone Bitart/Acetaminophen (Hydrocodone/Apap 5/325mg Tablet) 1 tab PO Q4HP PRN; Protocol PRN Reason: Per Pain Protocol Last Admin: 12/16/22 10:50 Dose: 1 tab Albuterol/Ipratropium (Ipratropium/Albuterol 3 Ml Ampul.Neb) 3 ml NEB Q6HRT [facility] Last Admin: 12/16/22 07:40 Dose: 3 ml Aspirin (Aspirin 81 Mg Tab.Chew) 81 mg PO DAILY [facility] Last Admin: 12/16/22 08:17 Dose: 81 mg Atorvastatin Calcium (Atorvastatin 40 Mg Tablet) 40 mg PO QHS [facility] Last Admin: 12/15/22 21:06 Dose: 40 mg Budesonide (Budesonide 0.5 Mg/2 Ml Ampul.Neb) 0.5 mg NEB Q12 [facility] Last Admin: 12/16/22 07:40 Dose: 0.5 mg Docusate Sodium (Docusate Sodium 100 Mg Capsule) 100 mg PO BID [facility] Last Admin: 12/16/22 08:17 Dose: 100 mg Enoxaparin Sodium (Enoxaparin 40 Mg/0.4 Ml Syringe) 40 mg SQ DAILY [facility] Last Admin: 12/16/22 08:17 Dose: 40 mg Sodium Chloride (Sodium Chloride 0.9%) 250 mls @ 20 mls/hr IV .[id number] [facility] Last Admin: 12/16/22 06:40 Dose: Not Given Piperacillin Sod/Tazobactam (Sod 3.375 gm/ Dextrose) 50 mls @ 100 mls/hr IV Q6H [facility]; Protocol Last Admin: 12/16/22 11:32 Dose: 100 mls/hr Sodium Chloride (Sodium Chloride 0.9%) 250 mls @ 20 mls/hr IV .[id number] [facility] Last Admin: 12/16/22 08:17 Dose: Not Given Norepinephrine Bitartrate 8 mg (/ Sodium Chloride) 250 mls @ 18.75 mls/hr IV Q12HP PRN; Protocol PRN Reason: Hypotension Lactulose (Lactulose 20 Gm/30 Ml Oral.Rona) 10 gm PO DAILYP PRN PRN Reason: Constipation Nystatin (Nystatin 500,000 Units/5 Ml Oral.Susp) 500,000 units SSP TID [facility] Last Admin: 12/16/22 08:17 Dose: 500,000 units Ondansetron HCl (Ondansetron 4 Mg/2 Ml Vial) 4 mg IV Q4HP PRN; Protocol PRN Reason: Nausea And Vomiting Prednisone (Prednisone 20 Mg Tablet) 40 mg PO DAILY [facility] Last Admin: 12/16/22 08:17 Dose: 40 mg Promethazine HCl (Promethazine 25 Mg/Ml Vial) 12.5 mg IM Q6HP PRN; Protocol PRN Reason: Nausea And Vomiting Senna (Sennosides 1 Tablet) 2 tab PO HSP PRN PRN Reason: Constipation Sodium Chloride (0.9 % Sodium Chloride 10 Ml Syringe) 10 ml IV Q8 [facility] Last Admin: 12/16/22 05:54 Dose: 10 ml A/P Assessment and plan (1) Sepsis: Status: Acute Qualifiers: Sepsis acute organ dysfunction status: without acute organ dysfunction Sepsis type: sepsis due to unspecified organism Qualified Code(s): A41.9 - Sepsis, unspecified organism (2) Pneumonia: Status: Acute Qualifiers: Laterality: unspecified laterality Lung location: unspecified part of lung Pneumonia type: due to unspecified organism Qualified Code(s): J18.9 - Pneumonia, unspecified organism (3) Cellulitis: Status: Acute (4) AGUILA (acute kidney injury): Status: Acute (5) Hypotension: Status: Acute (6) Pedal edema: Status: Acute (7) Congestive heart failure: Status: Acute (8) DM2 (diabetes mellitus, type 2): Status: Acute (9) COPD exacerbation: Status: Acute (10) Smoker: Status: Acute Narrative A/P Narrative: The patient presents as a septic picture as he is hypotensive, tachycardic, with an elevated white blood cell count of 17,000. His lower extremities are erythematous, edematous, warm to touch and tender upon palpation. He does have areas of skin breakdown. A CT of the chest was performed this morning which was concerning for lower lobe infiltrates in the setting of groundglass opacities however the final radiology read is pending. His antibiotic coverage will be broadened from Levaquin to Zosyn. We will perform MRSA screen and follow-up with blood cultures. The patient has not needed dopamine infusion which was prescribed overnight. In the setting of hypotension and AGUILA, we are holding his home Entresto, Aldactone, torsemide and Toprol-XL. Continue IV fluid resuscitation. The patient's lactic acid was within normal limits at 1.0 today. Monitor on telemetry. He will be kept n.p.o. in case he needs BiPAP as he has a history of COPD and continues to smoke. His ABG was reassuring with a pH of 7.38, PCO2 of 31.5, and PaO2 of 79. 12/16: The patient's AGUILA is slowly improving as his creatinine is 2.2. His lactic acidosis has normalized to 1.8. I will review a copy of his recent TTE. We will continue antibiotics as above for her cellulitis. At this point, the patient's blood pressure is running on the low side however his map is greater than 65 and he has not needed Levophed. The patient will need to be evaluated by PT/OT once he is clinically stable. The patient is homeless and will likely need a nursing home facility. Social work has been able to set him up with insurance. Time Spent With Patient Time: Total time spent is greater than 50% in coordination of care (as documented) at patient's floor/unit and/or counseling patient: Subsequent: Total time with patient: 35 - 49 minutes QUALITY Stroke Symptom Onset Unknown: No VTE Deep Vein Thrombosis/Pulmonary Embolism Present on Admission: No
[2022-12-16 16:24] LABS: Appearance,Urine SL CLOUDY (Clear); Bilirubin,Urine NEGATIVE (Negative); Color,Urine YELLOW; Culture Indicated,Urine No; Glucose,Urine (UA) >=1000 mg/dL (Negative); Ketones,Urine NEGATIVE (Negative); Leukocyte Esterase,Urine NEGATIVE /uL (Negative); Mucus,Urine FEW /hpf; Nitrate,Urine NEGATIVE (Negative); PH,Urine 5.5 (5.0-9.0); Protein,Urine 30 mg/dL (Negative); Uric Acid Crystals,Urine MOD /hpf; Urine Blood LARGE ery/mcL (Negative); Urine RBC 143 /hpf (0-3); Urine Squamous Epithelial Cell < 1 /hpf (0-4); Urine WBC 8 /hpf (0-4); Urobilinogen,Urine Normal
[2022-12-16] MEDS: ATORVASTATIN 40 MG TABLET PO SCH (20:52)
[2022-12-17] MEDS: IPRATROPIUM/ALBUTEROL 3 ML AMPUL.NEB NEB SCH ×4 (00:35→19:04)
[2022-12-17] MEDS: 0.9 % SODIUM CHLORIDE 250 ML IV SCH ×4 (04:10→21:01)
[2022-12-17] MEDS: 0.9 % SODIUM CHLORIDE 10 ML SYRINGE IV SCH ×3 (05:16→21:00)
[2022-12-17] MEDS: PIPERACILLIN SODIUM/TAZOBACTAM 3.375 GM in DEXTROSE 5% IN WATER 50 ML IV SCH (05:16)
[2022-12-17] MEDS: BUDESONIDE 0.5 MG/2 ML AMPUL.NEB NEB SCH ×2 (07:02→19:04)
[2022-12-17] MEDS: NYSTATIN 500,000 UNITS/5 ML ORAL.SUSP SSP SCH ×3 (08:16→21:00)
[2022-12-17] MEDS: ASPIRIN 81 MG TAB.CHEW PO SCH (08:16)
[2022-12-17] MEDS: DOCUSATE SODIUM 100 MG CAPSULE PO SCH ×2 (08:16→20:59)
[2022-12-17] MEDS: ENOXAPARIN 40 MG/0.4 ML SYRINGE SQ SCH (08:16)
[2022-12-17] MEDS: predniSONE 20 MG TABLET PO SCH (08:16)
[2022-12-17] MEDS: HYDROcodone/APAP 5/325MG TABLET PO PRN (09:30)
--- NOTE | 2022-12-17 11:17 | Internal Med Progress Note ---
SUBJECTIVE Subjective Patient information: Note initiated : 12/17/22 at 11:14 am Service Date, if different from initiated Date: [] Patient: Billy Gomez 62 y/o M admitted on 12/15/22 for edema to lower extremeties. Chief Complaint: [] Principal diagnosis: Sepsis Interval history: The patient is resting comfortably in bed. He is looking better day by day. He is a very poor historian overall. He answers a lot of questions with "I do not know" when discussing prior history of polysubstance abuse, the patient did end orse methamphetamine use prior. He does not know if he seen a spinning mule tender before. I tried discussing his transesophageal echocardiogram results. Discussed the case with RN. Constitutional Vitals: Vital Signs Temp Pulse Resp BP Pulse Ox O2 Del Method O2 Flow Rate 98.2 F 36 L 18 100/72 99 Room Air 2 12/17/22 07:00 12/17/22 10:01 12/17/22 10:01 12/17/22 10:01 12/17/22 10:01 12/17/22 10:01 12/15/22 22:01 Period Temp Pulse Resp BP Sys/Whittaker Pulse Ox O2 Del Method O2 Flow Rate Last 24 Hr 97.3 F-98.2 F 29-123 0-30 71-121/34-99 90-100 Room Air-Room Air Intake and Output 12/16/22 12/17/22 12/17/22 19:59 03:59 11:59 Intake Total 300 690 530 Output Total 740 850 350 Balance -440 -160 180 Weight 118.796 kg 119.55 kg Intake & Output: Intake & Output 12/16/22 12/17/22 12/17/22 19:59 03:59 11:59 Intake Total 300 690 530 Output Total 740 850 350 Balance -440 -160 180 Weight 118.796 kg 119.55 kg Intake: IV 100 50 50 Zosyn 3.375 gm In Dextrose 5% 100 50 50 in Water 50 ml @ 100 mls/hr IV Q6H [facility] Rx#:[id number] Oral 200 640 480 Output: Urine Catheter Amount 400 Void Amount 340 850 350 Other: Meal Dinner Breakfast Percent of Meal Consumed 100% 100% Feeding Ability Independent Independent Urine Appearance Clear Clear Urine Color Dark Yellow Dark Yellow Urine Odor Normal Head Head exam: Present atraumatic and normal inspection Eye Eye exam: Present normal appearance ENT ENT exam: Present mucous membranes moist, normal exam and normal external ear exam Neck Neck exam: Present normal inspection Respiratory Respiratory exam: Present normal respiratory exam Cardiovascular Cardiovascular exam: Present normal rate and rhythm GI/Abdominal GI/Abdominal exam: Present normal bowel sounds Back Exam Back exam: Present normal inspection Neurological Exam Neurological exam: Present alert and oriented X3 Skin Skin exam: Present intact and warm OBJ DATA Labs 12/16/22 08:26 12/16/22 01:10 Labs: Abnormal Lab Results 12/16/22 12/16/22 12/16/22 15:10 08:26 01:10 WBC 11.6 H RDW 19.1 H Immature Gran % (Auto) Neut % (Auto) Lymph % (Auto) [place] # (Auto) 1.08 H Immature Gran # 0.06 H Absolute Neutrophils POC pCO2 POC pO2 POC HCO3 POC Total CO2 POC ABG Base Excess Sodium 131 L Carbon Dioxide 20 L POC BUN BUN 43 H Creatinine 2.2 H POC Creatinine Glucose 112 H POC Glucose Calcium 8.4 L POC WB Ioniz Calcium NT-Pro-B Natriuret Pep Urine Appearance Sl cloudy A Urine Protein 30 A Urine Glucose (UA) >=1000 A Urine Occult Blood Large A Urine RBC 143 H Urine WBC 8 H Uric Acid Crystals Mod A Urine Mucus Few A 12/15/22 12/15/22 12/15/22 16:05 08:42 07:55 WBC RDW Immature Gran % (Auto) Neut % (Auto) Lymph % (Auto) [place] # (Auto) Immature Gran # Absolute Neutrophils POC pCO2 31.5 L POC pO2 79 L POC HCO3 18.9 L POC Total CO2 20.0 L POC ABG Base Excess -6.0 L Sodium 132 L Carbon Dioxide 21 L 18 L POC BUN BUN 45 H 44 H Creatinine 2.4 H 2.4 H POC Creatinine Glucose 143 H POC Glucose Calcium 8.5 L 8.2 L POC WB Ioniz Calcium NT-Pro-B Natriuret Pep Urine Appearance Urine Protein Urine Glucose (UA) Urine Occult Blood Urine RBC Urine WBC Uric Acid Crystals Urine Mucus 12/15/22 12/14/22 12/14/22 07:55 22:02 22:01 WBC 13.1 H 17.4 H RDW 19.7 H 19.2 H Immature Gran % (Auto) 0.7 H 1.9 H Neut % (Auto) 78.3 H Lymph % (Auto) 13.5 L [place] # (Auto) 0.91 H Immature Gran # 0.09 H 0.33 H Absolute Neutrophils 9.42 H 13.61 H POC pCO2 POC pO2 POC HCO3 POC Total CO2 POC ABG Base Excess Sodium Carbon Dioxide POC BUN BUN Creatinine POC Creatinine Glucose POC Glucose Calcium POC WB Ioniz Calcium NT-Pro-B Natriuret Pep 69606.0 H Urine Appearance Urine Protein Urine Glucose (UA) Urine Occult Blood Urine RBC Urine WBC Uric Acid Crystals Urine Mucus 12/14/22 21:48 WBC RDW Immature Gran % (Auto) Neut % (Auto) Lymph % (Auto) [place] # (Auto) Immature Gran # Absolute Neutrophils POC pCO2 POC pO2 POC HCO3 POC Total CO2 POC ABG Base Excess Sodium Carbon Dioxide POC BUN 49 H BUN Creatinine POC Creatinine 2.9 H Glucose POC Glucose 115 H Calcium POC WB Ioniz Calcium 1.09 L NT-Pro-B Natriuret Pep Urine Appearance Urine Protein Urine Glucose (UA) Urine Occult Blood Urine RBC Urine WBC Uric Acid Crystals Urine Mucus Meds: Medications Acetaminophen (Acetaminophen 325 Mg Tablet) 650 mg PO Q6HP PRN; Protocol PRN Reason: Per Pain Protocol/Fever > 101 Hydrocodone Bitart/Acetaminophen (Hydrocodone/Apap 5/325mg Tablet) 1 tab PO Q4HP PRN; Protocol PRN Reason: Per Pain Protocol Last Admin: 12/16/22 19:11 Dose: 1 tab Albuterol/Ipratropium (Ipratropium/Albuterol 3 Ml Ampul.Neb) 3 ml NEB Q6HRT [facility] Last Admin: 12/17/22 07:02 Dose: 3 ml Aspirin (Aspirin 81 Mg Tab.Chew) 81 mg PO DAILY [facility] Last Admin: 12/17/22 08:16 Dose: 81 mg Atorvastatin Calcium (Atorvastatin 40 Mg Tablet) 40 mg PO QHS [facility] Last Admin: 12/16/22 20:52 Dose: 40 mg Budesonide (Budesonide 0.5 Mg/2 Ml Ampul.Neb) 0.5 mg NEB Q12 [facility] Last Admin: 12/17/22 07:02 Dose: 0.5 mg Docusate Sodium (Docusate Sodium 100 Mg Capsule) 100 mg PO BID [facility] Last Admin: 12/17/22 08:16 Dose: 100 mg Enoxaparin Sodium (Enoxaparin 40 Mg/0.4 Ml Syringe) 40 mg SQ DAILY [facility] Last Admin: 12/17/22 08:16 Dose: 40 mg Sodium Chloride (Sodium Chloride 0.9%) 250 mls @ 20 mls/hr IV .[id number] [facility] Last Admin: 12/17/22 04:10 Dose: Not Given Sodium Chloride (Sodium Chloride 0.9%) 250 mls @ 20 mls/hr IV .[id number] [facility] Last Admin: 12/17/22 09:34 Dose: Not Given Norepinephrine Bitartrate 8 mg (/ Sodium Chloride) 250 mls @ 18.75 mls/hr IV Q12HP PRN; Protocol PRN Reason: Hypotension Ampicillin Sodium/Sulbactam (Sodium 3 gm/ Sodium Chloride) 100 mls @ 200 mls/hr IV Q6H [facility] Lactulose (Lactulose 20 Gm/30 Ml Oral.Rona) 10 gm PO DAILYP PRN PRN Reason: Constipation Metoprolol Succinate (Metoprolol Succinate 25 Mg Tab.Xl.24h) 25 mg PO BID [facility] Nystatin (Nystatin 500,000 Units/5 Ml Oral.Susp) 500,000 units SSP TID [facility] Last Admin: 12/17/22 08:16 Dose: 500,000 units Ondansetron HCl (Ondansetron 4 Mg/2 Ml Vial) 4 mg IV Q4HP PRN; Protocol PRN Reason: Nausea And Vomiting Prednisone (Prednisone 20 Mg Tablet) 40 mg PO DAILY [facility] Last Admin: 12/17/22 08:16 Dose: 40 mg Promethazine HCl (Promethazine 25 Mg/Ml Vial) 12.5 mg IM Q6HP PRN; Protocol PRN Reason: Nausea And Vomiting Senna (Sennosides 1 Tablet) 2 tab PO HSP PRN PRN Reason: Constipation Sodium Chloride (0.9 % Sodium Chloride 10 Ml Syringe) 10 ml IV Q8 [facility] Last Admin: 12/17/22 05:16 Dose: 10 ml A/P Assessment and plan (1) Sepsis: Status: Acute Qualifiers: Sepsis acute organ dysfunction status: without acute organ dysfunction Sepsis type: sepsis due to unspecified organism Qualified Code(s): A41.9 - Sepsis, unspecified organism (2) Pneumonia: Status: Acute Qualifiers: Laterality: unspecified laterality Lung location: unspecified part of lung Pneumonia type: due to unspecified organism Qualified Code(s): J18.9 - Pneumonia, unspecified organism (3) Cellulitis: Status: Acute (4) AGUILA (acute kidney injury): Status: Acute (5) Hypotension: Status: Acute (6) Pedal edema: Status: Acute (7) Congestive heart failure: Status: Acute (8) DM2 (diabetes mellitus, type 2): Status: Acute (9) COPD exacerbation: Status: Acute (10) Smoker: Status: Acute Narrative A/P Narrative: The patient presents as a septic picture as he is hypotensive, tachycardic, with an elevated white blood cell count of 17,000. His lower extremities are erythematous, edematous, warm to touch and tender upon palpation. He does have areas of skin breakdown. A CT of the chest was performed this morning which was concerning for lower lobe infiltrates in the setting of groundglass opacities however the final radiology read is pending. His antibiotic coverage will be broadened from Levaquin to Zosyn. We will perform MRSA screen and follow-up with blood cultures. The patient has not needed dopamine infusion which was prescribed overnight. In the setting of hypotension and AGUILA, we are holding his home Entresto, Aldactone, torsemide and Toprol-XL. Continue IV fluid resuscita tion. The patient's lactic acid was within normal limits at 1.0 today. Monitor on telemetry. He will be kept n.p.o. in case he needs BiPAP as he has a history of COPD and continues to smoke. His ABG was reassuring with a pH of 7.38, PCO2 of 31.5, and PaO2 of 79. 12/16: The patient's AGUILA is slowly improving as his creatinine is 2.2. His lactic acidosis has normalized to 1.8. I will review a copy of his recent TTE. We will continue antibiotics as above for her cellulitis. At this point, the patient's blood pressure is running on the low side however his map is greater than 65 and he has not needed Levophed. The patient will need to be evaluated by PT/OT once he is clinically stable. The patient is homeless and will likely need a group home facility. Social work has been able to set him up with insurance. 12/17: RAMESH performed in September revealed dilated LV with severely depressed ejection fraction of 20%. RV was dilated. Left atrium dilated. 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 Cardioversion was attempted at that time but aborted due to left atrial appendage thrombus. The patient is not on anticoagulation likely in the setting of noncompliance or psychosocial circumstances. At this time we will slowly start to introduce some of his home cardiac medications including Toprol-XL. We will hold his Entresto, Aldactone and torsemide in the setting of ongoing AGUILA. The patient's sepsis and cellulitis have greatly improved. We will switch Zosyn to Unasyn. Time Spent With Patient Time: Total time spent is greater than 50% in coordination of care (as documented) at patient's floor/unit and/or counseling patient: Subsequent: Total time with patient: 35 - 49 minutes QUALITY Stroke Symptom Onset Unknown: No VTE Deep Vein Thrombosis/Pulmonary Embolism Present on Admission: No
[2022-12-17] MEDS: AMPICILLIN SODIUM/SULBACTAM NA 3 GM in 0.9 % SODIUM CHLORIDE 100 ML IV SCH ×2 (11:37→17:43)
[2022-12-17 12:33] LABS: Blood Urea Nitrogen 36 mg/dL (6-20); Calcium 8.5 mg/dL (8.6-10.4); Carbon Dioxide 19 mmol/L (22-30); Chloride 100 mmol/L (96-108); Glomerular Filtration Rate 40; Glucose 144 mg/dL (70-105)
--- NOTE | 2022-12-17 14:47 | EKG ---
[facility] Test Date: 2022-12-17 Pat Name: Billy Gomez Department: ICU Room: 120A Gender: Male Photo Finisher: : 1960 Requested By: Shayy Amador Order Number: [id number] Reading MD: Roshan Hill M.D. Measurements Intervals [place] Rate: 108 P: -83 VT: 141 QRS: 0 QRSD: 110 T: 169 QT: 367 QTc: 485 Interpretive Statements Ectopic atrial tachycardia, unifocal Atrial premature complex Low voltage, precordial leads Consider anterior infarct Nonspecific T abnormalities, lateral leads Electronically Signed On 12-17-2022 14:46:36 PST by Roshan Hill M.D. /[facility]//[id number]
[2022-12-17] MEDS: ATORVASTATIN 40 MG TABLET PO SCH (20:59)
[2022-12-17] MEDS: METOPROLOL SUCCINATE 25 MG TAB.XL.24H PO SCH (20:59)
[2022-12-18] MEDS: AMPICILLIN SODIUM/SULBACTAM NA 3 GM in 0.9 % SODIUM CHLORIDE 100 ML IV SCH ×5 (00:13→23:43)
[2022-12-18] MEDS: IPRATROPIUM/ALBUTEROL 3 ML AMPUL.NEB NEB SCH ×4 (00:32→19:44)
[2022-12-18] MEDS: 0.9 % SODIUM CHLORIDE 250 ML IV SCH (03:50)
[2022-12-18] MEDS: 0.9 % SODIUM CHLORIDE 10 ML SYRINGE IV SCH ×3 (05:31→20:40)
[2022-12-18] MEDS: BUDESONIDE 0.5 MG/2 ML AMPUL.NEB NEB SCH ×2 (09:09→19:44)
--- NOTE | 2022-12-18 09:27 | Internal Med Progress Note ---
SUBJECTIVE Subjective Patient information: Note initiated : 12/18/22 at 9:23 am Service Date, if different from initiated Date: [] Patient: Billy Gomez 62 y/o M admitted on 12/15/22 for edema to lower extremeties. Chief Complaint: [AMS] Principal diagnosis: Sepsis Interval history: The patient is clinically stable and awaiting dispo (homeless) Constitutional Vitals: Vital Signs Temp Pulse Resp BP Pulse Ox O2 Del Method O2 Flow Rate 97.4 F 120 H 30 H 101/88 90 Room Air 2 12/18/22 08:00 12/18/22 06:02 12/18/22 08:00 12/18/22 08:00 12/18/22 08:00 12/18/22 08:00 12/15/22 22:01 Period Temp Pulse Resp BP Sys/Whittaker Pulse Ox O2 Del Method O2 Flow Rate Last 24 Hr 97.4 F-98.4 F 36-120 0-30 97-117/63-91 90-99 Room Air-Room Air Intake and Output 12/17/22 12/18/22 12/18/22 19:59 03:59 11:59 Intake Total 1560 600 840 Output Total 1250 550 650 Balance 310 50 190 Weight 121.88 kg Intake & Output: Intake & Output 12/17/22 12/18/22 12/18/22 19:59 03:59 11:59 Intake Total 1560 600 840 Output Total 1250 550 650 Balance 310 50 190 Weight 121.88 kg Intake: IV 200 100 100 Unasyn 3 gm In Sodium Chloride 200 100 100 0.9% 100 ml @ 200 mls/hr IV Q6H [facility] Rx#:[id number] Oral 1360 500 740 Output: Void Amount 1250 550 650 Other: Meal Dinner snack Percent of Meal Consumed 100% 100% Feeding Ability Independent Independent Urine Appearance Clear Clear Urine Color Dark Yaritza Dark Yaritza Light Yaritza Urine Odor Strong Strong Normal Head Head exam: Present atraumatic and normal inspection Eye Eye exam: Present normal appearance ENT ENT exam: Present mucous membranes moist, normal exam and normal external ear exam Neck Neck exam: Present normal inspection Respiratory Respiratory exam: Present normal respiratory exam Cardiovascular Cardiovascular exam: Present normal rate and rhythm GI/Abdominal GI/Abdominal exam: Present normal bowel sounds Back Exam Back exam: Present normal inspection Neurological Exam Neurological exam: Present alert and oriented X3 Skin Skin exam: Present intact and warm OBJ DATA Labs 12/16/22 08:26 12/17/22 11:27 Labs: Abnormal Lab Results 12/17/22 12/16/22 12/16/22 11:27 15:10 08:26 WBC 11.6 H RDW 19.1 H Ness # (Auto) 1.08 H Immature Gran # 0.06 H Sodium 132 L Carbon Dioxide 19 L BUN 36 H Creatinine 1.8 H Glucose 144 H Calcium 8.5 L Urine Appearance Sl cloudy A Urine Protein 30 A Urine Glucose (UA) >=1000 A Urine Occult Blood Large A Urine RBC 143 H Urine WBC 8 H Uric Acid Crystals Mod A Urine Mucus Few A 12/16/22 12/15/22 01:10 16:05 WBC RDW Ness # (Auto) Immature Gran # Sodium 131 L Carbon Dioxide 20 L 21 L BUN 43 H 45 H Creatinine 2.2 H 2.4 H Glucose 112 H 143 H Calcium 8.4 L 8.5 L Urine Appearance Urine Protein Urine Glucose (UA) Urine Occult Blood Urine RBC Urine WBC Uric Acid Crystals Urine Mucus Meds: Medications Acetaminophen (Acetaminophen 325 Mg Tablet) 650 mg PO Q6HP PRN; Protocol PRN Reason: Per Pain Protocol/Fever > 101 Hydrocodone Bitart/Acetaminophen (Hydrocodone/Apap 5/325mg Tablet) 1 tab PO Q4HP PRN; Protocol PRN Reason: Per Pain Protocol Last Admin: 12/17/22 09:30 Dose: 1 tab Albuterol/Ipratropium (Ipratropium/Albuterol 3 Ml Ampul.Neb) 3 ml NEB Q6HRT [facility] Last Admin: 12/18/22 09:09 Dose: Not Given Aspirin (Aspirin 81 Mg Tab.Chew) 81 mg PO DAILY [facility] Last Admin: 12/17/22 08:16 Dose: 81 mg Atorvastatin Calcium (Atorvastatin 40 Mg Tablet) 40 mg PO QHS [facility] Last Admin: 12/17/22 20:59 Dose: 40 mg Budesonide (Budesonide 0.5 Mg/2 Ml Ampul.Neb) 0.5 mg NEB Q12 [facility] Last Admin: 12/18/22 09:09 Dose: Not Given Docusate Sodium (Docusate Sodium 100 Mg Capsule) 100 mg PO BID [facility] Last Admin: 12/17/22 20:59 Dose: 100 mg Enoxaparin Sodium (Enoxaparin 40 Mg/0.4 Ml Syringe) 40 mg SQ DAILY [facility] Last Admin: 12/17/22 08:16 Dose: 40 mg Sodium Chloride (Sodium Chloride 0.9%) 250 mls @ 20 mls/hr IV .[id number] [facility] Last Admin: 12/18/22 03:50 Dose: Not Given Sodium Chloride (Sodium Chloride 0.9%) 250 mls @ 20 mls/hr IV .[id number] [facility] Last Admin: 12/17/22 21:01 Dose: Not Given Norepinephrine Bitartrate 8 mg (/ Sodium Chloride) 250 mls @ 18.75 mls/hr IV Q12HP PRN; Protocol PRN Reason: Hypotension Ampicillin Sodium/Sulbactam (Sodium 3 gm/ Sodium Chloride) 100 mls @ 200 mls/hr IV Q6H [facility] Last Infusion: 12/18/22 06:26 Dose: Infused Lactulose (Lactulose 20 Gm/30 Ml Oral.Rona) 10 gm PO DAILYP PRN PRN Reason: Constipation Metoprolol Succinate (Metoprolol Succinate 25 Mg Tab.Xl.24h) 25 mg PO BID [facility] Last Admin: 12/17/22 20:59 Dose: 25 mg Nystatin (Nystatin 500,000 Units/5 Ml Oral.Susp) 500,000 units SSP TID [facility] Last Admin: 12/17/22 21:00 Dose: 500,000 units Ondansetron HCl (Ondansetron 4 Mg/2 Ml Vial) 4 mg IV Q4HP PRN; Protocol PRN Reason: Nausea And Vomiting Prednisone (Prednisone 20 Mg Tablet) 40 mg PO DAILY [facility] Last Admin: 12/17/22 08:16 Dose: 40 mg Promethazine HCl (Promethazine 25 Mg/Ml Vial) 12.5 mg IM Q6HP PRN; Protocol PRN Reason: Nausea And Vomiting Senna (Sennosides 1 Tablet) 2 tab PO HSP PRN PRN Reason: Constipation Sodium Chloride (0.9 % Sodium Chloride 10 Ml Syringe) 10 ml IV Q8 [facility] Last Admin: 12/18/22 05:31 Dose: 10 ml A/P Assessment and plan (1) Sepsis: Status: Acute Qualifiers: Sepsis acute organ dysfunction status: without acute organ dysfunction Sepsis type: sepsis due to unspecified organism Qualified Code(s): A41.9 - Seps is, unspecified organism (2) Pneumonia: Status: Acute Qualifiers: Laterality: unspecified laterality Lung location: unspecified part of lung Pneumonia type: due to unspecified organism Qualified Code(s): J18.9 - Pneumonia, unspecified organism (3) Cellulitis: Status: Acute (4) AGUILA (acute kidney injury): Status: Acute (5) Hypotension: Status: Acute (6) Pedal edema: Status: Acute (7) Congestive heart failure: Status: Acute (8) DM2 (diabetes mellitus, type 2): Status: Acute (9) COPD exacerbation: Status: Acute (10) Smoker: Status: Acute Narrative A/P Narrative: The patient presents as a septic picture as he is hypotensive, tachycardic, with an elevated white blood cell count of 17,000. His lower extremities are erythematous, edematous, warm to touch and tender upon palpation. He does have areas of skin breakdown. A CT of the chest was performed this morning which was concerning for lower lobe infiltrates in the setting of groundglass opacities however the final radiology read is pending. His antibiotic coverage will be broadened from Levaquin to Zosyn. We will perform MRSA screen and follow-up with blood cultures. The patient has not needed dopamine infusion which was prescribed overnight. In the setting of hypotension and AGUILA, we are holding his home Entresto, Aldactone, torsemide and Toprol-XL. Continue IV fluid resuscitation. The patient's lactic acid was within normal limits at 1.0 today. Monitor on telemetry. He will be kept n.p.o. in case he needs BiPAP as he has a history of COPD and continues to smoke. His ABG was reassuring with a pH of 7.38, PCO2 of 31.5, and PaO2 of 79. 12/16: The patient's AGUILA is slowly improving as his creatinine is 2.2. His lactic acidosis has normalized to 1.8. I will review a copy of his recent TTE. We will continue antibiotics as above for her cellulitis. At this point, the patient's blood pressure is running on the low side however his map is greater than 65 and he has not needed Levophed. The patient will need to be evaluated by PT/OT once he is clinically stable. The patient is homeless and will likely need a longterm facility. Social work has been able to set him up with insurance. 12/17: RAMESH performed in September revealed dilated LV with severely depressed ejection fraction of 20%. RV was dilated. Left atrium dilated. 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 Cardioversion was attempted at that time but aborted due to left atrial appendage thrombus. The patient is not on anticoagulation likely in the setting of noncompliance or psychosocial circumstances. At this time we will slowly start to introduce some of his home cardiac medications including Toprol-XL. We will hold his Entresto, Aldactone and torsemide in the setting of ongoing AGUILA. The patient's sepsis and cellulitis have greatly improved. We will switch Zosyn to Unasyn. 12/18: #Sepsis -Resolved #Cellulitis -bilateral LE, clinically improving. Continue Unasyn #AGUILA -Cr down to 1.8 from 2.4 #HFrEF 20% -dilated CM 2/ meth abuse -Holding torsemide, aldactone, entresto -Slowly readded Toprol XL -BP is also on the low side #Tachy-deng syndrome -Patient likely needs close f/u with cards re: PPM #DM2 -ISS #Goals of care -Palliative referral #Dispo -lives in car -SNF, CM able to complete insurance application for him Time Spent With Patient Time: Total time spent is greater than 50% in coordination of care (as documented) at patient's floor/unit and/or counseling patient: Subsequent: Total time with patient: 35 - 49 minutes QUALITY Stroke Symptom Onset Unknown: No VTE Deep Vein Thrombosis/Pulmonary Embolism Present on Admission: No
[2022-12-18] MEDS ORDERED: DEXTROSE 31 GM ORAL.SUSP PO PRN (09:28)
[2022-12-18] MEDS ORDERED: DEXTROSE 50% 50 ML VIAL IV PRN (09:28)
[2022-12-18] MEDS: METOPROLOL SUCCINATE 25 MG TAB.XL.24H PO SCH ×2 (10:06→20:40)
[2022-12-18] MEDS: DOCUSATE SODIUM 100 MG CAPSULE PO SCH ×2 (10:06→20:36)
[2022-12-18] MEDS: predniSONE 20 MG TABLET PO SCH (10:06)
[2022-12-18] MEDS: ASPIRIN 81 MG TAB.CHEW PO SCH (10:06)
[2022-12-18] MEDS: NYSTATIN 500,000 UNITS/5 ML ORAL.SUSP SSP SCH ×5 (10:06→20:39)
[2022-12-18] MEDS: ENOXAPARIN 40 MG/0.4 ML SYRINGE SQ SCH (10:07)
[2022-12-18 10:40] LABS: Blood Urea Nitrogen 31 mg/dL (6-20); Calcium 8.5 mg/dL (8.6-10.4); Carbon Dioxide 20 mmol/L (22-30); Chloride 100 mmol/L (96-108); Glomerular Filtration Rate 54; Glucose 96 mg/dL (70-105)
[2022-12-18] MEDS: INSULIN LISPRO 1 UNIT/0.01 ML UNIT SQ SCH ×3 (12:49→20:37)
[2022-12-18] MEDS: HYDROcodone/APAP 5/325MG TABLET PO PRN (18:35)
[2022-12-18] MEDS: ATORVASTATIN 40 MG TABLET PO SCH (20:40)
[2022-12-19] MEDS: IPRATROPIUM/ALBUTEROL 3 ML AMPUL.NEB NEB SCH ×2 (00:26→08:47)
[2022-12-19] MEDS: AMPICILLIN SODIUM/SULBACTAM NA 3 GM in 0.9 % SODIUM CHLORIDE 100 ML IV SCH ×3 (05:36→17:44)
[2022-12-19] MEDS: 0.9 % SODIUM CHLORIDE 10 ML SYRINGE IV SCH ×3 (05:36→20:59)
[2022-12-19 07:45] LABS: Basophils # (Auto) 0.02 K/mcL (0.00-0.30); Basophils % (Auto) 0.2 % (0.0-2.0); Eosinophils # (Auto) 0.02 K/mcL (0.00-0.70); Eosinophils % (Auto) 0.2 % (0.0-7.0); Hematocrit 44.1 % (40.1-51.0); Hemoglobin 14.1 g/dL (13.7-17.5); Lymphocytes # (Auto) 2.53 K/mcL (1.50-4.80); Lymphocytes % (Auto) 21.9 % (15.5-49.0); Mean Cell Volume 83.5 fL (80.0-100.0); Mean Platelet Volume 9.7 fL (8.8-12.5); Monocytes # (Auto) 1.04 K/mcL (0.10-0.90); Neutrophils % (Auto) 67.8 % (38.0-78.0); Platelet Count 346 K/mcL (140-440); RBC 5.28 M/mcL (4.63-6.08); Red Cell Distribution Width 19.8 % (11.5-14.5); WBC 11.6 K/mcL (4.5-11.0)
[2022-12-19 07:53] LABS: ALT/SGPT 17 U/L (<40); AST/SGOT 23 U/L (<40); Albumin 2.8 gm/dL (3.2-5.2); Albumin/Globulin Ratio 0.8 (1.0-2.3); Alkaline Phosphatase 251 U/L (39-117); Bilirubin,Total 1.3 mg/dL (0.1-1.0); Blood Urea Nitrogen 29 mg/dL (6-20); Calcium 8.4 mg/dL (8.6-10.4); Carbon Dioxide 20 mmol/L (22-30); Chloride 100 mmol/L (96-108); Globulin 3.5 gm/dL (2.2-3.7); Glomerular Filtration Rate 59; Glucose 95 mg/dL (70-105)
[2022-12-19] MEDS: INSULIN LISPRO 1 UNIT/0.01 ML UNIT SQ SCH ×4 (07:54→20:58)
[2022-12-19 07:59] LABS: Estimated Average Glucose(eAG) 151 mg/dL; Hemoglobin A1C 6.9 % Hgb (4.0-6.0)
[2022-12-19] MEDS: predniSONE 20 MG TABLET PO SCH (08:48)
[2022-12-19] MEDS: DOCUSATE SODIUM 100 MG CAPSULE PO SCH ×2 (08:48→20:58)
[2022-12-19] MEDS: ASPIRIN 81 MG TAB.CHEW PO SCH (08:48)
[2022-12-19] MEDS: METOPROLOL SUCCINATE 25 MG TAB.XL.24H PO SCH ×2 (08:48→20:59)
[2022-12-19] MEDS: BUDESONIDE 0.5 MG/2 ML AMPUL.NEB NEB SCH ×2 (08:48→19:17)
[2022-12-19] MEDS: ENOXAPARIN 40 MG/0.4 ML SYRINGE SQ SCH (08:49)
[2022-12-19] MEDS: NYSTATIN 500,000 UNITS/5 ML ORAL.SUSP SSP SCH ×3 (08:49→20:59)
[2022-12-19] MEDS ORDERED: NITROGLYCERIN 0.4 MG TAB.SUBL SL PRN (11:38)
[2022-12-19] MEDS ORDERED: ACETAMINOPHEN 325 MG PO PRN (11:38)
[2022-12-19] MEDS ORDERED: BUDESONIDE FORMOTEROL INHALATION SCH (11:45)
[2022-12-19] MEDS ORDERED: [UNRECOGNIZED DRUG - OTHER] INHALATION SCH (11:45)
--- NOTE | 2022-12-19 11:58 | Internal Med Progress Note ---
SUBJECTIVE Subjective Patient information: Note initiated : 12/19/22 at 11:45 am Service Date, if different from initiated Date: [] Patient: Billy Gomez 62 y/o M admitted on 12/15/22 for edema to lower extremeties. Chief Complaint: [] Principal diagnosis: Sepsis Interval history: Mr. Gomez is a 62 year old obese male smoker with a complex past medical history significant for congestive heart failure, COPD, mitral valve repair, diabetes mellitus type 2 and BPH who presents to the hospital with vague complaints. When I evaluated the patient this morning, he was not able to talk much due to oral thrush. In general, the patient is quite a poor historian. History is mainly obtained through chart review and from nursing. He presented to the ER complaining of worsening pedal edema due to what he believed was VTE. There is no history of the patient recently being prescribed anticoagulation therapy. Venous duplex was obtained on presentation which was negative for VTE in both extremities. On arrival, the patient was hemodynamically tenuous as he was hypotensive with an SBP in the 70s and 80s and was tachycardic with a heart rate of 110. He was found to have an elevated white blood cell count of 17.4 a nd a creatinine of 2.9. The hospitalist service was asked admit the patient for further management and evaluation of his suspected sepsis of unclear etiology. 12/16: The patient is much more alert, interactive and conversive today. He states that his legs are still painful and he is unable to ambulate. The patient states that his oral thrush is better and is able to have more p.o. intake. Discussed the case with RN and social work. 12/17: The patient is resting comfortably in bed. He is looking better day by day. He is a very poor historian overall. He answers a lot of questions with "I do not know" when discussing prior history of polysubstance abuse, the patient did endorse methamphetamine use prior. He does not know if he seen a geologic technician before. I tried discussing his transesophageal echocardiogram results. Discussed the case with RN. 12/18: The patient is clinically stable and awaiting dispo (homeless) 12/19: Kidney functions continue to improve. Low grade fever Tmax 37.3 overnight. WBC 11.6. Cultures no growth to date. Patient is c/o right lower leg pain and chills . Resume Torsemide given improving kidney functions. Continue to hold Aldactone and Entresto given soft blood pressure. Continue Unasyn while monitoring blood culture results. Continue to work with physical therapy and home health care case manager for placement planning. PT recs. SNF Constitutional Vitals: Vital Signs Temp Pulse Resp BP Pulse Ox O2 Del Method O2 Flow Rate 37.3 C H 104 H 32 H 96/75 95 Room Air 0 12/19/22 08:02 12/19/22 08:48 12/19/22 10:01 12/19/22 10:01 12/19/22 10:01 12/19/22 08:48 12/18/22 10:07 Period Temp Pulse Resp BP Sys/Whittaker Pulse Ox O2 Del Method O2 Flow Rate Last 24 Hr 36.2 C-37.3 C 18-114 0-39 96-121/75-99 93-100 Room Air-Room Air Intake and Output 12/18/22 12/19/22 12/19/22 19:59 03:59 11:59 Intake Total 440 750 300 Output Total 524 450 350 Balance -84 300 -50 Weight 122.016 kg Intake & Output: Intake & Output 12/18/22 12/19/22 12/19/22 19:59 03:59 11:59 Intake Total 440 750 300 Output Total 524 450 350 Balance -84 300 -50 Weight 122.016 kg Intake: IV 200 100 100 Unasyn 3 gm In Sodium Chloride 200 100 100 0.9% 100 ml @ 200 mls/hr IV Q6H [facility] Rx#:[id number] Oral 240 650 200 Output: Urine Catheter Amount 300 Void Amount 224 450 350 Other: Meal Dinner Breakfast Percent of Meal Consumed 100% 100% Feeding Ability Independent Independent Urine Appearance Clear Urine Color Dark Yaritza Dark Yellow Dark Yaritza Stool Size Moderate Small Stool Color Brown Brown Green Stool Consistency Soft Soft # Bowel Movements 1 # of times incontinent of 1 Bowels Head Head exam: Present atraumatic and normal inspection Eye Eye exam: Present normal appearance ENT ENT exam: Present mucous membranes moist, normal exam and normal external ear exam Neck Neck exam: Present normal inspection Respiratory Respiratory exam: Present normal respiratory exam Cardiovascular Cardiovascular exam: Present normal rate and rhythm GI/Abdominal GI/Abdominal exam: Present normal bowel sounds Extremities Exam Extremities exam: Present full ROM and tenderness; Absent normal inspection Additional comments: Erythema, swelling, warmth, tenderness to palpation right > left lower extremities Back Exam Back exam: Present normal inspection Neurological Exam Neurological exam: Present alert and oriented X3 Skin Skin exam: Present erythema and warm; Absent intact Additional comments: Erythema, swelling, warmth, tenderness to palpation right > left lower extrem ities OBJ DATA Labs 12/19/22 05:11 12/19/22 05:11 Labs: Abnormal Lab Results 12/19/22 12/19/22 12/18/22 05:11 05:11 08:42 WBC 11.6 H RDW 19.8 H Immature Gran % (Auto) 0.9 H Newton # (Auto) 1.04 H Immature Gran # 0.10 H Sodium 132 L 132 L Carbon Dioxide 20 L 20 L BUN 29 H 31 H Creatinine 1.3 H 1.4 H Glucose Hemoglobin A1c 6.9 H Calcium 8.4 L 8.5 L Total Bilirubin 1.3 H Alkaline Phosphatase 251 H Albumin 2.8 L Albumin/Globulin Ratio 0.8 L Urine Appearance Urine Protein Urine Glucose (UA) Urine Occult Blood Urine RBC Urine WBC Uric Acid Crystals Urine Mucus 12/17/22 12/16/22 11:27 15:10 WBC RDW Immature Gran % (Auto) Newton # (Auto) Immature Gran # Sodium 132 L Carbon Dioxide 19 L BUN 36 H Creatinine 1.8 H Glucose 144 H Hemoglobin A1c Calcium 8.5 L Total Bilirubin Alkaline Phosphatase Albumin Albumin/Globulin Ratio Urine Appearance Sl cloudy A Urine Protein 30 A Urine Glucose (UA) >=1000 A Urine Occult Blood Large A Urine RBC 143 H Urine WBC 8 H Uric Acid Crystals Mod A Urine Mucus Few A Meds: Medications Acetaminophen (Acetaminophen 325 Mg Tablet) 650 mg PO Q6HP PRN; Protocol PRN Reason: Per Pain Protocol/Fever > 101 Hydrocodone Bitart/Acetaminophen (Hydrocodone/Apap 5/325mg Tablet) 1 tab PO Q4HP PRN; Protocol PRN Reason: Per Pain Protocol Last Admin: 12/18/22 18:35 Dose: 1 tab Albuterol/Ipratropium (Ipratropium/Albuterol 3 Ml Ampul.Neb) 3 ml NEB Q6HRT [facility] Last Admin: 12/19/22 08:47 Dose: 3 ml Aspirin (Aspirin 81 Mg Tab.Chew) 81 mg PO DAILY [facility] Last Admin: 12/19/22 08:48 Dose: 81 mg Atorvastatin Calcium (Atorvastatin 40 Mg Tablet) 40 mg PO QHS [facility] Last Admin: 12/18/22 20:40 Dose: 40 mg Budesonide (Budesonide 0.5 Mg/2 Ml Ampul.Neb) 0.5 mg NEB Q12 [facility] Last Admin: 12/19/22 08:48 Dose: 0.5 mg Cetirizine HCl (Cetirizine 10 Mg Tablet) 10 mg PO QDAY [facility] Dextrose (Dextrose 50% 50 Ml Vial) 0 ml IV UD PRN PRN Reason: Per Sliding Scale Diagnostic Test (Pha) (Accu-Chek 1 Each Strip) 1 each FS ACHS [facility] Last Admin: 12/19/22 07:54 Dose: 1 each Docusate Sodium (Docusate Sodium 100 Mg Capsule) 100 mg PO BID [facility] Last Admin: 12/19/22 08:48 Dose: 100 mg Enoxaparin Sodium (Enoxaparin 40 Mg/0.4 Ml Syringe) 40 mg SQ DAILY [facility] Last Admin: 12/19/22 08:49 Dose: 40 mg Famotidine (Famotidine 20 Mg Tablet) 20 mg PO BID [facility] Glucose (Dextrose 31 Gm Oral.Susp) 15 gm PO PRN PRN PRN Reason: Hypoglycemia Ampicillin Sodium/Sulbactam (Sodium 3 gm/ Sodium Chloride) 100 mls @ 200 mls/hr IV Q6H [facility] Last Infusion: 12/19/22 06:25 Dose: Infused Insulin Human Lispro (Insulin Lispro 1 Unit/0.01 Ml Unit) 0 unit SQ ACHS [facility]; Protocol Last Admin: 12/19/22 07:54 Dose: Not Given Lactulose (Lactulose 20 Gm/30 Ml Oral.Rona) 10 gm PO DAILYP PRN PRN Reason: Constipation Metoprolol Succinate (Metoprolol Succinate 25 Mg Tab.Xl.24h) 25 mg PO BID [facility] Last Admin: 12/19/22 08:48 Dose: 25 mg Naproxen (Naproxen 500 Mg Tablet) 500 mg PO BID [facility]; Protocol Nitroglycerin (Nitroglycerin 0.4 Mg Tab.Subl) 0.4 mg SL Q5M PRN PRN Reason: Chest Pain Non-Formulary Medication (Budesonide-Formoterol) 2 puff INHALATION Q12H [facility] Non-Formulary Medication (Acetaminophen [Tylenol]) 500 mg PO Q6H PRN PRN Reason: Pain Nystatin (Nystatin 500,000 Units/5 Ml Oral.Susp) 500,000 units SSP TID [facility] Last Admin: 12/19/22 08:49 Dose: 500,000 units Ondansetron HCl (Ondansetron 4 Mg/2 Ml Vial) 4 mg IV Q4HP PRN; Protocol PRN Reason: Nausea And Vomiting Prednisone (Prednisone 20 Mg Tablet) 40 mg PO DAILY [facility] Last Admin: 12/19/22 08:48 Dose: 40 mg Promethazine HCl (Promethazine 25 Mg/Ml Vial) 12.5 mg IM Q6HP PRN; Protocol PRN Reason: Nausea And Vomiting Senna (Sennosides 1 Tablet) 2 tab PO HSP PRN PRN Reason: Constipation Sodium Chloride (0.9 % Sodium Chloride 10 Ml Syringe) 10 ml IV Q8 [facility] Last Admin: 12/19/22 05:36 Dose: 10 ml Torsemide (Torsemide 20 Mg Tablet) 40 mg PO QDAY [facility] A/P Assessment and plan (1) COPD exacerbation: Status: Acute (2) Cellulitis: Status: Acute (3) Sepsis: Status: Acute Qualifiers: Sepsis acute organ dysfunction status: without acute organ dysfunction Sepsis type: sepsis due to unspecified organism Qualified Code(s): A41.9 - Sepsis, unspecified organism (4) DM2 (diabetes mellitus, type 2): Status: Acute (5) Stage 2 acute kidney injury: Status: Acute (6) Hyponatremia: Status: Acute (7) Homelessness: Status: Acute (8) Systolic CHF, chronic: Status: Acute Narrative A/P Narrative: Assessment and Plans: 1. Bilateral lower extremities cellulitis with clinical sepsis: Inpatient med surg Exacerbated by stasis dermatitis from CHF Blood culture no growth to date cbc w/ auto diff in the morning to trend WBC Unasyn Physical therapy: recs. SNF 2. COPD exacerbation: Prednisone, finishing DuoNEB Pulmicort 3. systolic CHF, stable: 2/2 Meth abuse Metoprolol Succinate Torsemide Hold Aldactone due to soft blood pressure Hold Entresto due to soft blood pressure 4. Hyponatremia: Chemistry in the morning to trend serum sodium level 5. T2DM: HgA1c Hold any oral hypoglycemics Insulin Lispro AC HS Accu Check AC HS Hypoglycemia protocol Diabetic diet 6. Homelessness: Physical therapy: recs. SNF Will work with home health care case managerrelations manager worker to find a placement 7. Acute kidney injury: Avoid nephrotoxic agents Saline lock, Resume Torsemide given improving kidney functions Chemistry in the morning to trend kidney functions GI ppx: Pepcid DVT ppx: Lovenox Code status: Full Prognosis: guarded Disposition: inpatient med surg; SNF Time Spent With Patient Time: Total time spent is greater than 50% in coordination of care (as documented) at patient's floor/unit and/or counseling patient: QUALITY Stroke Symptom Onset Unknown: No VTE Deep Vein Thrombosis/Pulmonary Embolism Present on Admission: No
[2022-12-19] MEDS ORDERED: IPRATROPIUM/ALBUTEROL 3 ML AMPUL.NEB NEB PRN (12:01)
[2022-12-19] MEDS ORDERED: TORSEMIDE 20 MG TABLET PO ONE (15:00)
[2022-12-19] MEDS: NAPROXEN 250 MG TABLET PO SCH (17:43)
[2022-12-19] MEDS: ATORVASTATIN 40 MG TABLET PO SCH (20:59)
[2022-12-19] MEDS: FAMOTIDINE 20 MG TABLET PO SCH (20:59)
[2022-12-19] MEDS: HYDROcodone/APAP 5/325MG TABLET PO PRN (21:14)
[2022-12-20] MEDS: AMPICILLIN SODIUM/SULBACTAM NA 3 GM in 0.9 % SODIUM CHLORIDE 100 ML IV SCH ×4 (05:02→17:26)
[2022-12-20] MEDS: HYDROcodone/APAP 5/325MG TABLET PO PRN (05:02)
[2022-12-20 06:13] LABS: Basophils # (Auto) 0.03 K/mcL (0.00-0.30); Basophils % (Auto) 0.2 % (0.0-2.0); Eosinophils # (Auto) 0.11 K/mcL (0.00-0.70); Eosinophils % (Auto) 0.8 % (0.0-7.0); Hematocrit 46.7 % (40.1-51.0); Hemoglobin 14.9 g/dL (13.7-17.5); Lymphocytes # (Auto) 3.74 K/mcL (1.50-4.80); Lymphocytes % (Auto) 28.4 % (15.5-49.0); Mean Cell Volume 83.4 fL (80.0-100.0); Mean Corpuscular HGB Conc 31.9 g/dL (31.0-36.0); Monocytes # (Auto) 1.34 K/mcL (0.10-0.90); Monocytes % (Auto) 10.2 % (1.0-12.0); Neutrophils % (Auto) 59.4 % (38.0-78.0); Platelet Count 354 K/mcL (140-440); WBC 13.2 K/mcL (4.5-11.0)
[2022-12-20 06:54] LABS: ALT/SGPT 25 U/L (<40); AST/SGOT 32 U/L (<40); Albumin/Globulin Ratio 0.9 (1.0-2.3); Alkaline Phosphatase 267 U/L (39-117); Bilirubin,Total 1.2 mg/dL (0.1-1.0); Blood Urea Nitrogen 36 mg/dL (6-20); Calcium 8.6 mg/dL (8.6-10.4); Carbon Dioxide 22 mmol/L (22-30); Chloride 101 mmol/L (96-108); Globulin 3.4 gm/dL (2.2-3.7); Glomerular Filtration Rate 50; Glucose 102 mg/dL (70-105)
[2022-12-20] MEDS: INSULIN LISPRO 1 UNIT/0.01 ML UNIT SQ SCH ×4 (07:55→20:30)
[2022-12-20] MEDS: BUDESONIDE 0.5 MG/2 ML AMPUL.NEB NEB SCH ×2 (07:57→21:25)
[2022-12-20] MEDS: NYSTATIN 500,000 UNITS/5 ML ORAL.SUSP SSP SCH ×3 (08:58→20:30)
[2022-12-20] MEDS: CETIRIZINE 10 MG TABLET PO SCH (08:58)
[2022-12-20] MEDS: NAPROXEN 250 MG TABLET PO SCH ×2 (08:58→16:49)
[2022-12-20] MEDS: METOPROLOL SUCCINATE 25 MG TAB.XL.24H PO SCH ×2 (08:58→20:51)
[2022-12-20] MEDS: ASPIRIN 81 MG TAB.CHEW PO SCH (08:58)
[2022-12-20] MEDS: FAMOTIDINE 20 MG TABLET PO SCH ×2 (08:58→20:51)
[2022-12-20] MEDS: predniSONE 20 MG TABLET PO SCH (08:58)
[2022-12-20] MEDS: DOCUSATE SODIUM 100 MG CAPSULE PO SCH ×2 (08:59→20:29)
[2022-12-20] MEDS: ENOXAPARIN 40 MG/0.4 ML SYRINGE SQ SCH (08:59)
[2022-12-20] MEDS: 0.9 % SODIUM CHLORIDE 10 ML SYRINGE IV SCH ×2 (09:05→13:01)
[2022-12-20] MEDS: TORSEMIDE 20 MG TABLET PO SCH (09:05)
[2022-12-20] MEDS ORDERED: SPIRONOLACTONE 25 MG TABLET PO SCH (12:33)
--- NOTE | 2022-12-20 12:33 | Internal Med Progress Note ---
SUBJECTIVE Subjective Patient information: Note initiated : 12/20/22 at 12:31 pm Service Date, if different from initiated Date: [] Patient: Billy Gomez 62 y/o M admitted on 12/15/22 for edema to lower extremeties. Chief Complaint: [] Principal diagnosis: Sepsis Interval history: Mr. Gomez is a 62 year old obese male smoker with a complex past medical history significant for congestive heart failure, COPD, mitral valve repair, diabetes mellitus type 2 and BPH who presents to the hospital with vague complaints. When I evaluated the patient this morning, he was not able to talk much due to oral thrush. In general, the patient is quite a poor historian. History is mainly obtained through chart review and from nursing. He presented to the ER complaining of worsening pedal edema due to what he believed was VTE. There is no history of the patient recently being prescribed anticoagulation therapy. Venous duplex was obtained on presentation which was negative for VTE in both extremities. On arrival, the patient was hemodynamically tenuous as he was hypotensive with an SBP in the 70s and 80s and was tachycardic with a heart rate of 110. He was found to have an elevated white blood cell count of 17.4 a nd a creatinine of 2.9. The hospitalist service was asked admit the patient for further management and evaluation of his suspected sepsis of unclear etiology. 12/16: The patient is much more alert, interactive and conversive today. He states that his legs are still painful and he is unable to ambulate. The patient states that his oral thrush is better and is able to have more p.o. intake. Discussed the case with RN and social work. 12/17: The patient is resting comfortably in bed. He is looking better day by day. He is a very poor historian overall. He answers a lot of questions with "I do not know" when discussing prior history of polysubstance abuse, the patient did endorse methamphetamine use prior. He does not know if he seen a manager dialysis before. I tried discussing his transesophageal echocardiogram results. Discussed the case with RN. 12/18: The patient is clinically stable and awaiting dispo (homeless) 12/19: Kidney functions continue to improve. Low grade fever Tmax 37.3 overnight. WBC 11.6. Cultures no growth to date. Patient is c/o right lower leg pain and chills . Resume Torsemide given improving kidney functions. Continue to hold Aldactone and Entresto given soft blood pressure. Continue Unasyn while monitoring blood culture results. Continue to work with physical therapy and medical case worker for placement planning. PT recs. SNF 12/20: Patient is having good diuresis upon resuming torsemide. Latest blood pressure 110/80 mmHg. Patient's leg swellings has also improved. Afebrile overnight. WBC 13.2 this morning. All cultures no growth today. Will resume Aldactone. Continue torsemide. Keep holding Entresto. Continue Unasyn while monitoring blood culture results. Pending SNF placement. [facility] Will [facility] tele[facility]. Constitutional Vitals: Vital Signs Temp Pulse Resp BP Pulse Ox O2 Del Method O2 Flow Rate 36.8 C 109 H 30 H 110/80 98 Nasal Cannula 0 12/20/22 11:47 12/20/22 11:47 12/20/22 11:47 12/20/22 11:47 12/20/22 11:47 12/20/22 08:00 12/18/22 10:07 Period Temp Pulse Resp BP Sys/Whittaker Pulse Ox O2 Del Method O2 Flow Rate Last 24 Hr 36.2 C-36.8 C 49-114 0-31 83-118/66-92 87-100 Nasal Cannula- Room Air Intake and Output 12/20/22 12/20/22 12/20/22 03:59 11:59 19:59 Intake Total 400 400 240 Output Total 1800 450 750 Balance -1400 -50 -510 Weight 119.295 kg Intake & Output: Intake & Output 12/20/22 12/20/22 12/20/22 03:59 11:59 19:59 Intake Total 400 400 240 Output Total 1800 450 750 Balance -1400 -50 -510 Weight 119.295 kg Intake: IV 100 100 Unasyn 3 gm In Sodium Chloride 100 100 0.9% 100 ml @ 200 mls/hr IV Q6H [facility] Rx#:[id number] Oral 300 300 240 Output: Void Amount 1800 450 750 Other: Meal Breakfast Lunch Percent of Meal Consumed 100% 100% Feeding Ability Independent Nourishment/Supplement name [id number] jello x2 Urine Appearance Clear Clear Clear Urine Color Yellow Bright Yellow Yellow Urine Odor Normal Head Head exam: Present atraumatic and normal inspection Eye Eye exam: Present normal appearance ENT ENT exam: Present mucous membranes moist, normal exam and normal external ear exam Neck Neck exam: Present normal inspection Respiratory Respiratory exam: Present normal respiratory exam Cardiovascular Cardiovascular exam: Present normal rate and rhythm GI/Abdominal GI/Abdominal exam: Present normal bowel sounds Extremities Exam Extremities exam: Present joint swelling and tenderness; Absent normal i nspection Additional comments: Erythema, swelling, warmth, tenderness to palpation right > left lower extremities Back Exam Back exam: Present normal inspection Neurological Exam Neurological exam: Present alert and oriented X3 Skin Skin exam: Present erythema and warm; Absent intact Additional comments: Erythema, swelling, warmth, tenderness to palpation right > left lower extremities OBJ DATA Labs 12/20/22 04:53 12/20/22 04:53 Labs: Abnormal Lab Results 12/20/22 12/20/22 12/19/22 04:53 04:53 05:11 WBC 13.2 H 11.6 H RDW 20.0 H 19.8 H Immature Gran % (Auto) 1.0 H 0.9 H [place] # (Auto) 1.34 H 1.04 H Immature Gran # 0.13 H 0.10 H Sodium Carbon Dioxide BUN 36 H Creatinine 1.5 H Glucose Hemoglobin A1c Calcium Total Bilirubin 1.2 H Alkaline Phosphatase 267 H Albumin 3.0 L Albumin/Globulin Ratio 0.9 L 12/19/22 12/18/22 12/17/22 05:11 08:42 11:27 WBC RDW Immature Gran % (Auto) [place] # (Auto) Immature Gran # Sodium 132 L 132 L 132 L Carbon Dioxide 20 L 20 L 19 L BUN 29 H 31 H 36 H Creatinine 1.3 H 1.4 H 1.8 H Glucose 144 H Hemoglobin A1c 6.9 H Calcium 8.4 L 8.5 L 8.5 L Total Bilirubin 1.3 H Alkaline Phosphatase 251 H Albumin 2.8 L Albumin/Globulin Ratio 0.8 L Meds: Medications Acetaminophen (Acetaminophen 325 Mg Tablet) 650 mg PO Q6HP PRN; Protocol PRN Reason: Per Pain Protocol/Fever > 101 Hydrocodone Bitart/Acetaminophen (Hydrocodone/Apap 5/325mg Tablet) 1 tab PO Q4HP PRN; Protocol PRN Reason: Per Pain Protocol Last Admin: 12/20/22 05:02 Dose: 1 tab Albuterol/Ipratropium (Ipratropium/Albuterol 3 Ml Ampul.Neb) 3 ml NEB Q6HRT PRN PRN Reason: Wheezing Aspirin (Aspirin 81 Mg Tab.Chew) 81 mg PO DAILY [facility] Last Admin: 12/20/22 08:58 Dose: 81 mg Atorvastatin Calcium (Atorvastatin 40 Mg Tablet) 40 mg PO QHS [facility] Last Admin: 12/19/22 20:59 Dose: 40 mg Budesonide (Budesonide 0.5 Mg/2 Ml Ampul.Neb) 0.5 mg NEB Q12 [facility] Last Admin: 12/20/22 07:57 Dose: 0.5 mg Cetirizine HCl (Cetirizine 10 Mg Tablet) 10 mg PO QDAY [facility] Last Admin: 12/20/22 08:58 Dose: 10 mg Dextrose (Dextrose 50% 50 Ml Vial) 0 ml IV UD PRN PRN Reason: Per Sliding Scale Diagnostic Test (Pha) (Accu-Chek 1 Each Strip) 1 each FS [facility] Last Admin: 12/20/22 12:20 Dose: 1 each Docusate Sodium (Docusate Sodium 100 Mg Capsule) 100 mg PO BID [facility] Last Admin: 12/20/22 08:59 Dose: Not Given Enoxaparin Sodium (Enoxaparin 40 Mg/0.4 Ml Syringe) 40 mg SQ DAILY [facility] Last Admin: 12/20/22 08:59 Dose: 40 mg Famotidine (Famotidine 20 Mg Tablet) 20 mg PO BID [facility] Last Admin: 12/20/22 08:58 Dose: 20 mg Glucose (Dextrose 31 Gm Oral.Susp) 15 gm PO PRN PRN PRN Reason: Hypoglycemia Ampicillin Sodium/Sulbactam (Sodium 3 gm/ Sodium Chloride) 100 mls @ 200 mls/hr IV Q6H [facility] Last Admin: 12/20/22 12:19 Dose: 200 mls/hr Insulin Human Lispro (Insulin Lispro 1 Unit/0.01 Ml Unit) 0 unit SQ [facility]; Protocol Last Admin: 12/20/22 12:20 Dose: Not Given Lactulose (Lactulose 20 Gm/30 Ml Oral.Rona) 10 gm PO DAILYP PRN PRN Reason: Constipation Metoprolol Succinate (Metoprolol Succinate 25 Mg Tab.Xl.24h) 25 mg PO BID [facility] Last Admin: 12/20/22 08:58 Dose: 25 mg Naproxen (Naproxen 250 Mg Tablet) 500 mg PO BIDCC [facility]; Protocol Last Admin: 12/20/22 08:58 Dose: 500 mg Nitroglycerin (Nitroglycerin 0.4 Mg Tab.Subl) 0.4 mg SL Q5M PRN PRN Reason: Chest Pain Nystatin (Nystatin 500,000 Units/5 Ml Oral.Susp) 500,000 units SSP TID [facility] Last Admin: 12/20/22 08:58 Dose: 500,000 units Ondansetron HCl (Ondansetron 4 Mg/2 Ml Vial) 4 mg IV Q4HP PRN; Protocol PRN Reason: Nausea And Vomiting Prednisone (Prednisone 20 Mg Tablet) 40 mg PO DAILY [facility] Last Admin: 12/20/22 08:58 Dose: 40 mg Promethazine HCl (Promethazine 25 Mg/Ml Vial) 12.5 mg IM Q6HP PRN; Protocol PRN Reason: Nausea And Vomiting Senna (Sennosides 1 Tablet) 2 tab PO HSP PRN PRN Reason: Constipation Sodium Chloride (0.9 % Sodium Chloride 10 Ml Syringe) 10 ml IV Q8 [facility] Last Admin: 12/20/22 09:05 Dose: 10 ml Torsemide (Torsemide 20 Mg Tablet) 40 mg PO QDAY [facility] Last Admin: 12/20/22 09:05 Dose: 40 mg A/P Assessment and plan (1) COPD exacerbation: Status: Acute (2) Cellulitis: Status: Acute (3) Sepsis: Status: Acute Qualifiers: Sepsis acute organ dysfunction status: without acute organ dysfunction Sepsis type: sepsis due to unspecified organism Qualified Code(s): A41.9 - Sepsis, unspecified organism (4) DM2 (diabetes mellitus, type 2): Status: Acute (5) Stage 2 acute kidney injury: Status: Acute (6) Hyponatremia: Status: Acute (7) Homelessness: Status: Acute (8) Systolic CHF, chronic: Status: Acute Narrative A/P Narrative: Assessment and Plans: 1. Bilateral lower extremities cellulitis with clinical sepsis: Inpatient med surg Exacerbated by stasis dermatitis from CHF Blood culture no growth to date cbc w/ auto diff in the morning to trend WBC Unasyn Physical therapy: recs. SNF 2. COPD exacerbation: Prednisone, finishing on 12/20/22 DuoNEB NEB Pulmicort 3. systolic CHF, stable: 2/2 Meth abuse Metoprolol Succinate Resume Torsemide Resume Aldactone Hold Entresto due to soft blood pressure 4. Hyponatremia: Chemistry in the morning to trend serum sodium level 5. T2DM: HgA1c 6.9 Hold any oral hypoglycemics Insulin Lispro AC HS Accu Check AC HS Hypoglycemia protocol Diabetic diet 6. Homelessness: Physical therapy: recs. SNF Will work with medical case workermanager people worker to find a placement 7. Acute kidney injury: Avoid nephrotoxic agents Saline lock, Resume Torsemide/Aldactone given improving kidney functions Chemistry in the morning to trend kidney functions GI ppx: Pepcid DVT ppx: Lovenox Code status: Full Prognosis: Stable Disposition: inpatient med surg; SNF Time Spent With Patient Time: Total time spent is greater than 50% in coordination of care (as documented) at patient's floor/unit and/or counseling patient: Subsequent: Total time with patient: 35 - 49 minutes QUALITY Stroke Symptom Onset Unknown: No VTE Deep Vein Thrombosis/Pulmonary Embolism Present on Admission: No
[2022-12-20] MEDS: ATORVASTATIN 40 MG TABLET PO SCH (20:51)
[2022-12-21] MEDS: AMPICILLIN SODIUM/SULBACTAM NA 3 GM in 0.9 % SODIUM CHLORIDE 100 ML IV SCH ×5 (00:34→23:59)
[2022-12-21] MEDS: 0.9 % SODIUM CHLORIDE 10 ML SYRINGE IV SCH ×4 (00:35→20:37)
[2022-12-21 06:30] LABS: Basophils # (Auto) 0.05 K/mcL (0.00-0.30); Basophils % (Auto) 0.4 % (0.0-2.0); Eosinophils # (Auto) 0.09 K/mcL (0.00-0.70); Eosinophils % (Auto) 0.6 % (0.0-7.0); Hematocrit 46.6 % (40.1-51.0); Hemoglobin 14.4 g/dL (13.7-17.5); Lymphocytes # (Auto) 3.32 K/mcL (1.50-4.80); Lymphocytes % (Auto) 23.6 % (15.5-49.0); Mean Cell Volume 86.8 fL (80.0-100.0); Mean Corpuscular HGB Conc 30.9 g/dL (31.0-36.0); Mean Platelet Volume 10.2 fL (8.8-12.5); Monocytes # (Auto) 1.06 K/mcL (0.10-0.90); Monocytes % (Auto) 7.5 % (1.0-12.0); Neutrophils % (Auto) 66.9 % (38.0-78.0); Platelet Count 357 K/mcL (140-440); RBC 5.37 M/mcL (4.63-6.08); Red Cell Distribution Width 20.3 % (11.5-14.5); WBC 14.1 K/mcL (4.5-11.0)
[2022-12-21] MEDS: INSULIN LISPRO 1 UNIT/0.01 ML UNIT SQ SCH ×4 (07:11→20:32)
[2022-12-21] MEDS: NAPROXEN 250 MG TABLET PO SCH ×2 (08:01→17:29)
[2022-12-21] MEDS: SPIRONOLACTONE 25 MG TABLET PO SCH (08:33)
[2022-12-21] MEDS: ASPIRIN 81 MG TAB.CHEW PO SCH (08:33)
[2022-12-21] MEDS: DOCUSATE SODIUM 100 MG CAPSULE PO SCH ×2 (08:33→20:31)
[2022-12-21] MEDS: METOPROLOL SUCCINATE 25 MG TAB.XL.24H PO SCH ×2 (08:34→20:36)
[2022-12-21] MEDS: NYSTATIN 500,000 UNITS/5 ML ORAL.SUSP SSP SCH ×3 (08:34→20:37)
[2022-12-21] MEDS: FAMOTIDINE 20 MG TABLET PO SCH ×2 (08:34→20:36)
[2022-12-21] MEDS: TORSEMIDE 20 MG TABLET PO SCH (08:34)
[2022-12-21] MEDS: CETIRIZINE 10 MG TABLET PO SCH (08:34)
[2022-12-21] MEDS: ENOXAPARIN 40 MG/0.4 ML SYRINGE SQ SCH (08:34)
[2022-12-21] MEDS: BUDESONIDE 0.5 MG/2 ML AMPUL.NEB NEB SCH ×2 (09:16→21:59)
[2022-12-21 09:33] LABS: ALT/SGPT 27 U/L (<40); AST/SGOT 26 U/L (<40); Albumin 3.1 gm/dL (3.2-5.2); Albumin/Globulin Ratio 0.9 (1.0-2.3); Alkaline Phosphatase 293 U/L (39-117); Bilirubin,Total 1.1 mg/dL (0.1-1.0); Blood Urea Nitrogen 44 mg/dL (6-20); Calcium 8.5 mg/dL (8.6-10.4); Carbon Dioxide 23 mmol/L (22-30); Chloride 99 mmol/L (96-108); Globulin 3.5 gm/dL (2.2-3.7); Glomerular Filtration Rate 46; Glucose 89 mg/dL (70-105)
--- NOTE | 2022-12-21 15:55 | Internal Med Progress Note ---
SUBJECTIVE Subjective Patient information: Note initiated : 12/21/22 at 3:48 pm Service Date, if different from initiated Date: [] Patient: Billy Gomez 62 y/o M admitted on 12/15/22 for edema to lower extremeties. Chief Complaint: [] Principal diagnosis: Sepsis Interval history: Mr. Gomez is a 62 year old obese male smoker with a complex past medical history significant for congestive heart failure, COPD, mitral valve repair, diabetes mellitus type 2 and BPH who presents to the hospital with vague complaints. When I evaluated the patient this morning, he was not able to talk much due to oral thrush. In general, the patient is quite a poor historian. History is mainly obtained through chart review and from nursing. He presented to the ER complaining of worsening pedal edema due to what he believed was VTE. There is no history of the patient recently being prescribed anticoagulation therapy. Venous duplex was obtained on presentation which was negative for VTE in both extremities. On arrival, the patient was hemodynamically tenuous as he was hypotensive with an SBP in the 70s and 80s and was tachycardic with a heart rate of 110. He was found to have an elevated white blood cell count of 17.4 an d a creatinine of 2.9. The hospitalist service was asked admit the patient for further management and evaluation of his suspected sepsis of unclear etiology. 12/16: The patient is much more alert, interactive and conversive today. He states that his legs are still painful and he is unable to ambulate. The patient states that his oral thrush is better and is able to have more p.o. intake. Discussed the case with RN and social work. 12/17: The patient is resting comfortably in bed. He is looking better day by day. He is a very poor historian overall. He answers a lot of questions with "I do not know" when discussing prior history of polysubstance abuse, the patient did endorse methamphetamine use prior. He does not know if he seen a instrument repair supervisor before. I tried discussing his transesophageal echocardiogram results. Discussed the case with RN. 12/18: The patient is clinically stable and awaiting dispo (homeless) 12/19: Kidney functions continue to improve. Low grade fever Tmax 37.3 overnight. WBC 11.6. Cultures no growth to date. Patient is c/o right lower leg pain and chills. Resume Torsemide given improving kidney functions. Continue to hold Aldactone and Entresto given soft blood pressure. Continue Unasyn while monitoring blood culture results. Continue to work with physical therapy and pillowcase folder for placement planning. PT recs. SNF 12/20: Patient is having good diuresis upon resuming torsemide. Latest blood pressure 110/80 mmHg. Patient's leg swellings has also improved. Afebrile overnight. WBC 13.2 this morning. All cultures no growth today. Will resume Aldactone. Continue torsemide. Keep holding Entresto. Continue Unasyn while monitoring blood culture results. Pending SNF placement. [facility]. 12/21: Patient is having good diuresis with Torsemide and Aldactone. Cannot resume Entresto since our pharmacy does not carry it and patient does not have it with him neither. WBC 14.1. Blood culture no growth, final. Improving degree of legs swelling/pain. Denies fever, chills, sweating. Continue Torsemide and Aldactone. Will write Rx of Entresto upon hospital discharge. Continue Unasyn, will d/c upon hospital discharge. Pending SNF placement. Constitutional Vitals: Vital Signs Temp Pulse Resp BP Pulse Ox O2 Del Method O2 Flow Rate 36.4 C 90 20 95/73 94 Room Air 0 12/21/22 11:36 12/21/22 11:36 12/21/22 11:36 12/21/22 11:36 12/21/22 11:36 12/21/22 11:36 12/18/22 10:07 Period Temp Pulse Resp BP Sys/Whittaker Pulse Ox O2 Del Method O2 Flow Rate Last 24 Hr 36.3 C-36.8 C 67-107 18-22 95-142/68-95 94-99 Room Air-Room Air Intake and Output 12/21/22 12/21/22 12/21/22 03:59 11:59 19:59 Intake Total 700 600 300 Output Total 1880 Balance 700 -1280 300 Weight 164.291 kg 164.291 kg Patient Weight 12/22/22 03:59 Weight 164.291 kg Intake & Output: Intake & Output 12/21/22 12/21/22 12/21/22 03:59 11:59 19:59 Intake Total 700 600 300 Output Total 1880 Balance 700 -1280 300 Weight 164.291 kg 164.291 kg Intake: IV 100 100 100 Unasyn 3 gm In Sodium Chloride 100 100 100 0.9% 100 ml @ 200 mls/hr IV Q6H [facility] Rx#:[id number] Oral 600 500 200 Output: Void Amount 1880 Other: Meal snack Breakfast Snack Percent of Meal Consumed 100% 100% 100% Feeding Ability Independent Independent Urine Appearance Clear Urine Color Pale Stool Size Large Moderate Stool Color Brown Brown Stool Consistency Soft Normal for Patient # Voids 1 # Bowel Movements 1 1 Head Head exam: Present atraumatic and normal inspection Eye Eye exam: Present normal appearance ENT ENT exam: Present mucous membranes moist, normal exam and normal external ear exam Neck Neck exam: Present normal inspection Respiratory Respiratory exam: Present normal respiratory exam Cardiovascular Cardiovascular exam: Present normal rate and rhythm GI/Abdominal GI/Abdominal exam: Present normal bowel sounds Extremities Exam Extremities exam: Present full ROM, joint swelling and tenderness Additional comments: Erythema, swelling, warmth, tenderness to palpation right > left lower extremities Back Exam Back exam: Present normal inspection Neurological Exam Neurological exam: Present alert and oriented X3 Skin Skin exam: Present erythema, intact and warm Additional comments: Erythema, swelling, warmth, tenderness to palpation right > left lower extremities OBJ DATA Labs 12/21/22 05:45 12/21/22 07:03 Labs: Abnormal Lab Results 12/21/22 12/21/22 12/20/22 07:03 05:45 04:53 WBC 14.1 H MCHC 30.9 L RDW 20.3 H Immature Gran % (Auto) 1.0 H [place] # (Auto) 1.06 H Immature Gran # 0.14 H Absolute Neutrophils 9.42 H Sodium Carbon Dioxide BUN 44 H 36 H Creatinine 1.6 H 1.5 H Hemoglobin A1c Calcium 8.5 L Total Bilirubin 1.1 H 1.2 H Alkaline Phosphatase 293 H 267 H Albumin 3.1 L 3.0 L Albumin/Globulin Ratio 0.9 L 0.9 L 12/20/22 12/19/22 12/19/22 04:53 05:11 05:11 WBC 13.2 H 11.6 H MCHC RDW 20.0 H 19.8 H Immature Gran % (Auto) 1.0 H 0.9 H [place] # (Auto) 1.34 H 1.04 H Immature Gran # 0.13 H 0.10 H Absolute Neutrophils Sodium 132 L Carbon Dioxide 20 L BUN 29 H Creatinine 1.3 H Hemoglobin A1c 6.9 H Calcium 8.4 L Total Bilirubin 1.3 H Alkaline Phosphatase 251 H Albumin 2.8 L Albumin/Globulin Ratio 0.8 L Meds: Medications Acetaminophen (Acetaminophen 325 Mg Tablet) 650 mg PO Q6HP PRN; Protocol PRN Reason: Per Pain Protocol/Fever > 101 Hydrocodone Bitart/Acetaminophen (Hydrocodone/Apap 5/325mg Tablet) 1 tab PO Q4HP PRN; Protocol PRN Reason: Per Pain Protocol Last Admin: 12/20/22 05:02 Dose: 1 tab Albuterol/Ipratropium (Ipratropium/Albuterol 3 Ml Ampul.Neb) 3 ml NEB Q6HRT PRN PRN Reason: Wheezing Aspirin (Aspirin 81 Mg Tab.Chew) 81 mg PO DAILY [facility] Last Admin: 12/21/22 08:33 Dose: 81 mg Atorvastatin Calcium (Atorvastatin 40 Mg Tablet) 40 mg PO QHS [facility] Last Admin: 12/20/22 20:51 Dose: 40 mg Budesonide (Budesonide 0.5 Mg/2 Ml Ampul.Neb) 0.5 mg NEB Q12 [facility] Last Admin: 12/21/22 09:16 Dose: 0.5 mg Cetirizine HCl (Cetirizine 10 Mg Tablet) 10 mg PO QDAY [facility] Last Admin: 12/21/22 08:34 Dose: 10 mg Dextrose (Dextrose 50% 50 Ml Vial) 0 ml IV UD PRN PRN Reason: Per Sliding Scale Diagnostic Test (Pha) (Accu-Chek 1 Each Strip) 1 each FS ACHS [facility] Last Admin: 12/21/22 11:27 Dose: 1 each Docusate Sodium (Docusate Sodium 100 Mg Capsule) 100 mg PO BID [facility] Last Admin: 12/21/22 08:33 Dose: Not Given Enoxaparin Sodium (Enoxaparin 40 Mg/0.4 Ml Syringe) 40 mg SQ DAILY [facility] Last Admin: 12/21/22 08:34 Dose: 40 mg Famotidine (Famotidine 20 Mg Tablet) 20 mg PO BID [facility] Last Admin: 12/21/22 08:34 Dose: 20 mg Glucose (Dextrose 31 Gm Oral.Susp) 15 gm PO PRN PRN PRN Reason: Hypoglycemia Ampicillin Sodium/Sulbactam (Sodium 3 gm/ Sodium Chloride) 100 mls @ 200 mls/hr IV Q6H [facility] Last Infusion: 12/21/22 12:02 Dose: Infused Insulin Human Lispro (Insulin Lispro 1 Unit/0.01 Ml Unit) 0 unit SQ ACHS [facility]; Protocol Last Admin: 12/21/22 11:27 Dose: Not Given Lactulose (Lactulose 20 Gm/30 Ml Oral.Rona) 10 gm PO DAILYP PRN PRN Reason: Constipation Metoprolol Succinate (Metoprolol Succinate 25 Mg Tab.Xl.24h) 25 mg PO BID [facility] Last Admin: 12/21/22 08:34 Dose: 25 mg [facility]en ([facility] Mg [facility]t) [facility] Protocol Last Admin: 12/21/22 08:01 Dose: 500 mg Nitroglycerin (Nitroglycerin 0.4 Mg Tab.Subl) 0.4 mg SL Q5M PRN PRN Reason: Chest Pain Nystatin (Nystatin 500,000 Units/5 Ml Oral.Susp) 500,000 units SSP TID [facility] Last Admin: 12/21/22 15:23 Dose: 500,000 units Ondansetron HCl (Ondansetron 4 Mg/2 Ml Vial) 4 mg IV Q4HP PRN; Protocol PRN Reason: Nausea And Vomiting Promethazine HCl (Promethazine 25 Mg/Ml Vial) 12.5 mg IM Q6HP PRN; Protocol PRN Reason: Nausea And Vomiting Senna (Sennosides 1 Tablet) 2 tab PO HSP PRN PRN Reason: Constipation Sodium Chloride (0.9 % Sodium Chloride 10 Ml Syringe) 10 ml IV Q8 [facility] Last Admin: 12/21/22 13:23 Dose: 10 ml Spironolactone (Spironolactone 25 Mg Tablet) 12.5 mg PO DAILY [facility] Last Admin: 12/21/22 08:33 Dose: 12.5 mg Torsemide (Torsemide 20 Mg Tablet) 40 mg PO QDAY [facility] Last Admin: 12/21/22 08:34 Dose: 40 mg A/P Assessment and plan (1) COPD exacerbation: Status: Acute (2) Cellulitis: Status: Acute (3) Sepsis: Status: Acute Qualifiers: Sepsis acute organ dysfunction status: without acute organ dysfunction Sepsis type: sepsis due to unspecified organism Qualified Code(s): A41.9 - Sepsis, unspecified organism (4) DM2 (diabetes mellitus, type 2): Status: Acute (5) Stage 2 acute kidney injury: Status: Acute (6) Hyponatremia: Status: Acute (7) Homelessness: Status: Acute (8) Systolic CHF, chronic: Status: Acute Narrative A/P Narrative: Assessment and Plans: 1. Bilateral lower extremities cellulitis with clinical sepsis: Inpatient med surg Exacerbated by stasis dermatitis from CHF Blood culture no growth, final cbc w/ auto diff in the morning to trend WBC Unasyn, discontinue upon hospital discharge Pending SNF placement 2. COPD exacerbation: Prednisone, finishing on 12/20/22 DuoNEB NEB Pulmicort 3. systolic CHF, stable: 2/2 Meth abuse Metoprolol Succinate Resume Torsemide Resume Aldactone Cannot resume Entresto since our pharmacy does not carry it and patient does not have it with him neither, will write Rx of Entresto upon hospital discharge 4. Hyponatremia: Chemistry in the morning to trend serum sodium level 5. T2DM: HgA1c 6.9 Hold any oral hypoglycemics Insulin Lispro AC HS Accu Check AC HS Hypoglycemia protocol Diabetic diet 6. Homelessness: Physical therapy: recs. SNF Will work with pillowcase folderassociate manager affiliate marketing worker to find a placement 7. Acute kidney injury: Avoid nephrotoxic agents Saline lock, Resume Torsemide/Aldactone given improving kidney functions Chemistry in the morning to trend kidney functions GI ppx: Pepcid DVT ppx: Lovenox Code status: Full Prognosis: Stable Disposition: inpatient med surg; SNF Time Spent With Patient Time: Total time spent is greater than 50% in coordination of care (as documented) at patient's floor/unit and/or counseling patient: Subsequent: Total time with patient: 35 - 49 minutes QUALITY Stroke Symptom Onset Unknown: No VTE Deep Vein Thrombosis/Pulmonary Embolism Present on Admission: No
[2022-12-21] MEDS: ATORVASTATIN 40 MG TABLET PO SCH (20:36)
[2022-12-21] MEDS: ONDANSETRON 4 MG/2 ML VIAL IV PRN (23:53)
[2022-12-22] MEDS: AMPICILLIN SODIUM/SULBACTAM NA 3 GM in 0.9 % SODIUM CHLORIDE 100 ML IV SCH ×3 (05:25→17:18)
[2022-12-22] MEDS: 0.9 % SODIUM CHLORIDE 10 ML SYRINGE IV SCH ×4 (05:45→21:15)
[2022-12-22 07:31] LABS: Basophils # (Auto) 0.07 K/mcL (0.00-0.30); Basophils % (Auto) 0.5 % (0.0-2.0); Eosinophils # (Auto) 0.18 K/mcL (0.00-0.70); Eosinophils % (Auto) 1.4 % (0.0-7.0); Hematocrit 47.4 % (40.1-51.0); Hemoglobin 14.8 g/dL (13.7-17.5); Lymphocytes # (Auto) 3.72 K/mcL (1.50-4.80); Lymphocytes % (Auto) 28.7 % (15.5-49.0); Mean Cell Volume 85.9 fL (80.0-100.0); Mean Corpuscular HGB Conc 31.2 g/dL (31.0-36.0); Mean Platelet Volume 9.9 fL (8.8-12.5); Monocytes # (Auto) 0.73 K/mcL (0.10-0.90); Monocytes % (Auto) 5.6 % (1.0-12.0); Neutrophils % (Auto) 62.7 % (38.0-78.0); Platelet Count 382 K/mcL (140-440); RBC 5.52 M/mcL (4.63-6.08); Red Cell Distribution Width 20.2 % (11.5-14.5)
[2022-12-22] MEDS: NAPROXEN 250 MG TABLET PO SCH ×2 (07:38→17:17)
[2022-12-22] MEDS: INSULIN LISPRO 1 UNIT/0.01 ML UNIT SQ SCH ×4 (07:44→21:00)
[2022-12-22] MEDS: TORSEMIDE 20 MG TABLET PO SCH (08:30)
[2022-12-22] MEDS: NYSTATIN 500,000 UNITS/5 ML ORAL.SUSP SSP SCH ×4 (08:30→21:23)
[2022-12-22] MEDS: DOCUSATE SODIUM 100 MG CAPSULE PO SCH ×3 (08:30→21:22)
[2022-12-22] MEDS: SPIRONOLACTONE 25 MG TABLET PO SCH (08:30)
[2022-12-22] MEDS: ASPIRIN 81 MG TAB.CHEW PO SCH (08:30)
[2022-12-22] MEDS: ENOXAPARIN 40 MG/0.4 ML SYRINGE SQ SCH (08:30)
[2022-12-22] MEDS: METOPROLOL SUCCINATE 25 MG TAB.XL.24H PO SCH ×2 (08:31→21:14)
[2022-12-22] MEDS: CETIRIZINE 10 MG TABLET PO SCH (08:31)
[2022-12-22] MEDS: FAMOTIDINE 20 MG TABLET PO SCH ×2 (08:31→21:13)
[2022-12-22 08:32] LABS: ALT/SGPT 26 U/L (<40); AST/SGOT 30 U/L (<40); Albumin 2.7 gm/dL (3.2-5.2); Albumin/Globulin Ratio 0.7 (1.0-2.3); Alkaline Phosphatase 241 U/L (39-117); Bilirubin,Total 1.4 mg/dL (0.1-1.0); Blood Urea Nitrogen 46 mg/dL (6-20); Calcium 8.3 mg/dL (8.6-10.4); Carbon Dioxide 18 mmol/L (22-30); Chloride 99 mmol/L (96-108); Globulin 3.7 gm/dL (2.2-3.7); Glomerular Filtration Rate 50; Glucose 100 mg/dL (70-105)
[2022-12-22] MEDS: BUDESONIDE 0.5 MG/2 ML AMPUL.NEB NEB SCH ×2 (08:53→20:18)
[2022-12-22] MEDS: HYDROcodone/APAP 5/325MG TABLET PO PRN (11:33)
--- NOTE | 2022-12-22 14:43 | Internal Med Progress Note ---
SUBJECTIVE Subjective Patient information: Note initiated : 12/22/22 at 2:40 pm Service Date, if different from initiated Date: [] Patient: Billy Gomez 62 y/o M admitted on 12/15/22 for edema to lower extremeties. Chief Complaint: [] Principal diagnosis: Sepsis Interval history: Mr. Gomez is a 62 year old obese male smoker with a complex past medical history significant for congestive heart failure, COPD, mitral valve repair, diabetes mellitus type 2 and BPH who presents to the hospital with vague complaints. When I evaluated the patient this morning, he was not able to talk much due to oral thrush. In general, the patient is quite a poor historian. History is mainly obtained through chart review and from nursing. He presented to the ER complaining of worsening pedal edema due to what he believed was VTE. There is no history of the patient recently being prescribed anticoagulation therapy. Venous duplex was obtained on presentation which was negative for VTE in both extremities. On arrival, the patient was hemodynamically tenuous as he was hypotensive with an SBP in the 70s and 80s and was tachycardic with a heart rate of 110. He was found to have an elevated white blood cell count of 17.4 an d a creatinine of 2.9. The hospitalist service was asked admit the patient for further management and evaluation of his suspected sepsis of unclear etiology. 12/16: The patient is much more alert, interactive and conversive today. He states that his legs are still painful and he is unable to ambulate. The patient states that his oral thrush is better and is able to have more p.o. intake. Discussed the case with RN and social work. 12/17: The patient is resting comfortably in bed. He is looking better day by day. He is a very poor historian overall. He answers a lot of questions with "I do not know" when discussing prior history of polysubstance abuse, the patient did endorse methamphetamine use prior. He does not know if he seen a electric shaver mechanic before. I tried discussing his transesophageal echocardiogram results. Discussed the case with RN. 12/18: The patient is clinically stable and awaiting dispo (homeless) 12/19: Kidney functions continue to improve. Low grade fever Tmax 37.3 overnight. WBC 11.6. Cultures no growth to date. Patient is c/o right lower leg pain and chills. Resume Torsemide given improving kidney functions. Continue to hold Aldactone and Entresto given soft blood pressure. Continue Unasyn while monitoring blood culture results. Continue to work with physical therapy and case operator for placement planning. PT recs. SNF 12/20: Patient is having good diuresis upon resuming torsemide. Latest blood pressure 110/80 mmHg. Patient's leg swellings has also improved. Afebrile overnight. WBC 13.2 this morning. All cultures no growth today. Will resume Aldactone. Continue torsemide. Keep holding Entresto. Continue Unasyn while monitoring blood culture results. Pending SNF placement. We will downgrade patient from PCU to [facility]. Will DC telemetry. 12/21: Patient is having good diuresis with Torsemide and Aldactone. Cannot resume Entresto since our pharmacy does not carry it and patient does not have it with him neither. WBC 14.1. Blood culture no growth, final. Improving degree of legs swelling/pain. Denies fever, chills, sweating. Continue Torsemide and Aldactone. Will write Rx of Entresto upon hospital discharge. Continue Unasyn, will d/c upon hospital discharge. Pending SNF placement. 12/22: Afebrile overnight. WBC 13.0. Cultures no growth to date. Improving degree of legs swelling/pain. Denies fever, chills, sweating. Good energy level. Continue Torsemide and Aldactone. Will write Rx of Entresto upon hospital discharge. Continue Unasyn, will d/c upon hospital discharge. Pending SNF placement. Constitutional Vitals: Vital Signs Temp Pulse Resp BP Pulse Ox O2 Del Method O2 Flow Rate 36.2 C 105 H 24 H 101/82 100 Room Air 0 12/22/22 12:12/22/22 12:12/22/22 12:12/22/22 12:12/22/22 12:12/22/22 12:12/22/22 03:07 Period Temp Pulse Resp BP Sys/Whittaker Pulse Ox O2 Del Method O2 Flow Rate Last 24 Hr 36.2 C-36.8 C 67-120 16-32 91-109/71-96 94-100 Room Air-Room Air 0-0 Intake and Output 12/22/22 12/22/2223 03:59 11:59 19:59 Intake Total 500 910 580 Output Total 2250 550 Balance 500 -1340 30 Intake & Output: Intake & Output 12/22/22 12/22/22 12/22/22 03:59 11:59 19:59 Intake Total 500 910 580 Output Total 2250 550 Balance 500 -1340 30 Intake: IV 100 100 100 Unasyn 3 gm In Sodium Chloride 100 100 100 0.9% 100 ml @ 200 mls/hr IV Q6H [facility] Rx#:[id number] Oral 400 810 480 Output: Void Amount 2250 550 Other: Meal Breakfast Lunch Percent of Meal Consumed 100% 100% Urine Appearance Clear Clear Urine Color Dark Yellow Yellow Stool Size Moderate Stool Color Brown Stool Consistency Soft Formed # Bowel Movements 1 Head Head exam: Present atraumatic and normal inspection Eye Eye exam: Present normal appearance ENT ENT exam: Present mucous membranes moist, normal exam and normal external ear exam Neck Neck exam: Present normal inspection Respiratory Respiratory exam: Present normal respiratory exam Cardiovascular Cardiovascular exam: Present normal rate and rhythm GI/Abdominal GI/Abdominal exam: Present normal bowel sounds Extremities Exam Extremities exam: Present tenderness; Absent normal inspection Additional comments: Erythema, swelling, warmth, tenderness to palpation right > left lower extremities Back Exam Back exam: Present normal inspection Neurological Exam Neurological exam: Present alert and oriented X3 Skin Skin exam: Present intact and warm Additional comments: Erythema, swelling, warmth, tenderness to palpation right > left lower extremities OBJ DATA Labs 12/22/22 06:05 12/22/22 06:05 Labs: Abnormal Lab Results 12/22/22 12/22/22 12/21/22 06:05 06:05 07:03 WBC 13.0 H MCHC RDW 20.2 H Immature Gran % (Auto) 1.1 H [place] # (Auto) Immature Gran # 0.14 H Absolute Neutrophils 8.13 H Carbon Dioxide 18 L Anion Gap 19.0 H BUN 46 H 44 H Creatinine 1.5 H 1.6 H Calcium 8.3 L 8.5 L Total Bilirubin 1.4 H 1.1 H Alkaline Phosphatase 241 H 293 H Albumin 2.7 L 3.1 L Albumin/Globulin Ratio 0.7 L 0.9 L 12/21/22 12/20/22 12/20/22 05:45 04:53 04:53 WBC 14.1 H 13.2 H MCHC 30.9 L RDW 20.3 H 20.0 H Immature Gran % (Auto) 1.0 H 1.0 H [place] # (Auto) 1.06 H 1.34 H Immature Gran # 0.14 H 0.13 H Absolute Neutrophils 9.42 H Carbon Dioxide Anion Gap BUN 36 H Creatinine 1.5 H Calcium Total Bilirubin 1.2 H Alkaline Phosphatase 267 H Albumin 3.0 L Albumin/Globulin Ratio 0.9 L Meds: Medications Acetaminophen (Acetaminophen 325 Mg Tablet) 650 mg PO Q6HP PRN; Protocol PRN Reason: Per Pain Protocol/Fever > 101 Hydrocodone Bitart/Acetaminophen (Hydrocodone/Apap 5/325mg Tablet) 1 tab PO Q4HP PRN; Protocol PRN Reason: Per Pain Protocol Last Admin: 12/22/22 11:33 Dose: 1 tab Albuterol/Ipratropium (Ipratropium/Albuterol 3 Ml Ampul.Neb) 3 ml NEB Q6HRT PRN PRN Reason: Wheezing Aspirin (Aspirin 81 Mg Tab.Chew) 81 mg PO DAILY [facility] Last Admin: 12/22/22 08:30 Dose: 81 mg Atorvastatin Calcium (Atorvastatin 40 Mg Tablet) 40 mg PO QHS [facility] Last Admin: 12/21/22 20:36 Dose: 40 mg Budesonide (Budesonide 0.5 Mg/2 Ml Ampul.Neb) 0.5 mg NEB Q12 [facility] Last Admin: 12/22/22 08:53 Dose: 0.5 mg Cetirizine HCl (Cetirizine 10 Mg Tablet) 10 mg PO QDAY [facility] Last Admin: 12/22/22 08:31 Dose: 10 mg Dextrose (Dextrose 50% 50 Ml Vial) 0 ml IV UD PRN PRN Reason: Per Sliding Scale Diagnostic Test (Pha) (Accu-Chek 1 Each Strip) 1 each FS ACHS [facility] Last Admin: 12/22/22 11:05 Dose: 1 each Docusate Sodium (Docusate Sodium 100 Mg Capsule) 100 mg PO BID [facility] Last Admin: 12/22/22 08:30 Dose: Not Given Enoxaparin Sodium (Enoxaparin 40 Mg/0.4 Ml Syringe) 40 mg SQ DAILY [facility] Last Admin: 12/22/22 08:30 Dose: 40 mg Famotidine (Famotidine 20 Mg Tablet) 20 mg PO BID [facility] Last Admin: 12/22/22 08:31 Dose: 20 mg Glucose (Dextrose 31 Gm Oral.Susp) 15 gm PO PRN PRN PRN Reason: Hypoglycemia Ampicillin Sodium/Sulbactam (Sodium 3 gm/ Sodium Chloride) 100 mls @ 200 mls/hr IV Q6H [facility] Last Infusion: 12/22/22 12:07 Dose: Infused Insulin Human Lispro (Insulin Lispro 1 Unit/0.01 Ml Unit) 0 unit SQ ACHS [facility]; Protocol Last Admin: 12/22/22 11:05 Dose: Not Given Lactulose (Lactulose 20 Gm/30 Ml Oral.Rona) 10 gm PO DAILYP PRN PRN Reason: Constipation Metoprolol Succinate (Metoprolol Succinate 25 Mg Tab.Xl.24h) 25 mg PO BID [facility] Last Admin: 12/22/22 08:31 Dose: 25 mg [facility]roxen ([facility] Last Admin: 12/22/22 07:38 Dose: 500 mg Nitroglycerin (Nitroglycerin 0.4 Mg Tab.Subl) 0.4 mg SL Q5M PRN PRN Reason: Chest Pain Nystatin (Nystatin 500,000 Units/5 Ml Oral.Susp) 500,000 units SSP TID [facility] Last Admin: 12/22/22 08:30 Dose: 500,000 units Ondansetron HCl (Ondansetron 4 Mg/2 Ml Vial) 4 mg IV Q4HP PRN; Protocol PRN Reason: Nausea And Vomiting Last Admin: 12/21/22 23:53 Dose: 4 mg Promethazine HCl (Promethazine 25 Mg/Ml Vial) 12.5 mg IM Q6HP PRN; Protocol PRN Reason: Nausea And Vomiting Senna (Sennosides 1 Tablet) 2 tab PO HSP PRN PRN Reason: Constipation Sodium Chloride (0.9 % Sodium Chloride 10 Ml Syringe) 10 ml IV Q8 [facility] Last Admin: 12/22/22 13:28 Dose: 10 ml Spironolactone (Spironolactone 25 Mg Tablet) 12.5 mg PO DAILY [facility] Last Admin: 12/22/22 08:30 Dose: 12.5 mg Torsemide (Torsemide 20 Mg Tablet) 40 mg PO QDAY [facility] Last Admin: 12/22/22 08:30 Dose: 40 mg A/P Assessment and plan (1) COPD exacerbation: Status: Acute (2) Cellulitis: Status: Acute (3) Sepsis: Status: Acute Qualifiers: Sepsis acute organ dysfunction status: without acute organ dysfunction Sepsis type: sepsis due to unspecified organism Qualified Code(s): A41.9 - Sepsis, unspecified organism (4) DM2 (diabetes mellitus, type 2): Status: Acute (5) Stage 2 acute kidney injury: Status: Acute (6) Hyponatremia: Status: Acute (7) Homelessness: Status: Acute (8) Systolic CHF, chronic: Status: Acute Narrative A/P Narrative: Assessment and Plans: 1. Bilateral lower extremities cellulitis with clinical sepsis: Inpatient med surg Exacerbated by stasis dermatitis from CHF Blood culture no growth, final cbc w/ auto diff in the morning to trend WBC Unasyn, discontinue upon hospital discharge Pending SNF placement 2. COPD exacerbation: Finished Prednisone DuoNEB NEB Pulmicort 3. systolic CHF, stable: 2/2 Meth abuse Metoprolol Succinate Resume Torsemide Resume Aldactone Cannot resume Entresto since our pharmacy does not carry it and patient does not have it with him neither, will write Rx of Entresto upon hospital discharge 4. Hyponatremia: RESOLVED Chemistry in the morning to trend serum sodium level 5. T2DM: HgA1c 6.9 Hold any oral hypoglycemics Insulin Lispro AC HS Accu Check AC HS Hypoglycemia protocol Diabetic diet 6. Homelessness: Physical therapy: recs. SNF Will work with case operatorsenior consulting manager worker to find a placement 7. Acute kidney injury: Avoid nephrotoxic agents Saline lock, Resume Torsemide/Aldactone given improving kidney functions Chemistry in the morning to trend kidney functions GI ppx: Pepcid DVT ppx: Lovenox Code status: Full Prognosis: Stable Disposition: inpatient med surg; SNF Time Spent With Patient Time: Total time spent is greater than 50% in coordination of care (as documented) at patient's floor/unit and/or counseling patient: Subsequent: Total time with patient: 35 - 49 minutes QUALITY Stroke Symptom Onset Unknown: No VTE Deep Vein Thrombosis/Pulmonary Embolism Present on Admission: No
[2022-12-22] MEDS: ATORVASTATIN 40 MG TABLET PO SCH (21:13)
[2022-12-23] MEDS: AMPICILLIN SODIUM/SULBACTAM NA 3 GM in 0.9 % SODIUM CHLORIDE 100 ML IV SCH ×4 (00:23→17:56)
[2022-12-23] MEDS: 0.9 % SODIUM CHLORIDE 10 ML SYRINGE IV SCH ×3 (06:09→20:45)
[2022-12-23 06:42] LABS: Basophils # (Auto) 0.05 K/mcL (0.00-0.30); Basophils % (Auto) 0.4 % (0.0-2.0); Eosinophils # (Auto) 0.18 K/mcL (0.00-0.70); Eosinophils % (Auto) 1.5 % (0.0-7.0); Hematocrit 47.9 % (40.1-51.0); Lymphocytes # (Auto) 4.36 K/mcL (1.50-4.80); Lymphocytes % (Auto) 36.3 % (15.5-49.0); Mean Cell Volume 85.5 fL (80.0-100.0); Mean Corpuscular HGB Conc 31.3 g/dL (31.0-36.0); Mean Platelet Volume 9.7 fL (8.8-12.5); Monocytes # (Auto) 0.72 K/mcL (0.10-0.90); Neutrophils % (Auto) 55.1 % (38.0-78.0); Platelet Count 386 K/mcL (140-440); Red Cell Distribution Width 20.4 % (11.5-14.5)
[2022-12-23] MEDS: INSULIN LISPRO 1 UNIT/0.01 ML UNIT SQ SCH ×4 (07:26→20:48)
[2022-12-23 07:35] LABS: ALT/SGPT 24 U/L (<40); AST/SGOT 25 U/L (<40); Albumin/Globulin Ratio 0.8 (1.0-2.3); Alkaline Phosphatase 252 U/L (39-117); Bilirubin,Total 1.4 mg/dL (0.1-1.0); Blood Urea Nitrogen 47 mg/dL (6-20); Calcium 8.1 mg/dL (8.6-10.4); Carbon Dioxide 20 mmol/L (22-30); Chloride 97 mmol/L (96-108); Globulin 3.6 gm/dL (2.2-3.7); Glomerular Filtration Rate 46; Glucose 93 mg/dL (70-105)
[2022-12-23] MEDS: NAPROXEN 250 MG TABLET PO SCH ×2 (07:40→17:57)
[2022-12-23] MEDS: NYSTATIN 500,000 UNITS/5 ML ORAL.SUSP SSP SCH ×4 (08:34→20:44)
[2022-12-23] MEDS: FAMOTIDINE 20 MG TABLET PO SCH ×2 (08:35→20:44)
[2022-12-23] MEDS: SPIRONOLACTONE 25 MG TABLET PO SCH (08:35)
[2022-12-23] MEDS: CETIRIZINE 10 MG TABLET PO SCH (08:36)
[2022-12-23] MEDS: ASPIRIN 81 MG TAB.CHEW PO SCH (08:36)
[2022-12-23] MEDS: TORSEMIDE 20 MG TABLET PO SCH (08:37)
[2022-12-23] MEDS: ENOXAPARIN 40 MG/0.4 ML SYRINGE SQ SCH (08:37)
[2022-12-23] MEDS: DOCUSATE SODIUM 100 MG CAPSULE PO SCH ×3 (08:37→20:49)
[2022-12-23] MEDS: METOPROLOL SUCCINATE 25 MG TAB.XL.24H PO SCH ×2 (08:51→20:44)
--- NOTE | 2022-12-23 10:54 | Internal Med Progress Note ---
SUBJECTIVE Subjective Patient information: Note initiated : 12/23/22 at 10:53 am Service Date, if different from initiated Date: [] Patient: Billy Gomez 62 y/o M admitted on 12/15/22 for edema to lower extremeties. Chief Complaint: [] Principal diagnosis: Sepsis Interval history: Mr. Gomez is a 62 year old obese male smoker with a complex past medical history significant for congestive heart failure, COPD, mitral valve repair, diabetes mellitus type 2 and BPH who presents to the hospital with vague complaints. When I evaluated the patient this morning, he was not able to talk much due to oral thrush. In general, the patient is quite a poor historian. History is mainly obtained through chart review and from nursing. He presented to the ER complaining of worsening pedal edema due to what he believed was VTE. There is no history of the patient recently being prescribed anticoagulation therapy. Venous duplex was obtained on presentation which was negative for VTE in both extremities. On arrival, the patient was hemodynamically tenuous as he was hypotensive with an SBP in the 70s and 80s and was tachycardic with a heart rate of 110. He was found to have an elevated white blood cell count of 17.4 a nd a creatinine of 2.9. The hospitalist service was asked admit the patient for further management and evaluation of his suspected sepsis of unclear etiology. 12/16: The patient is much more alert, interactive and conversive today. He states that his legs are still painful and he is unable to ambulate. The patient states that his oral thrush is better and is able to have more p.o. intake. Discussed the case with RN and social work. 12/17: The patient is resting comfortably in bed. He is looking better day by day. He is a very poor historian overall. He answers a lot of questions with "I do not know" when discussing prior history of polysubstance abuse, the patient did endorse methamphetamine use prior. He does not know if he seen a call center recruiter before. I tried discussing his transesophageal echocardiogram results. Discussed the case with RN. 12/18: The patient is clinically stable and awaiting dispo (homeless) 12/19: Kidney functions continue to improve. Low grade fever Tmax 37.3 overnight. WBC 11.6. Cultures no growth to date. Patient is c/o right lower leg pain and chills . Resume Torsemide given improving kidney functions. Continue to hold Aldactone and Entresto given soft blood pressure. Continue Unasyn while monitoring blood culture results. Continue to work with physical therapy and field nurse case manager for placement planning. PT recs. SNF 12/20: Patient is having good diuresis upon resuming torsemide. Latest blood pressure 110/80 mmHg. Patient's leg swellings has also improved. Afebrile overnight. WBC 13.2 this morning. All cultures no growth today. Will resume Aldactone. Continue torsemide. Keep holding Entresto. Continue Unasyn while monitoring blood culture results. Pending SNF placement. We will downgrade patient from PCU to [facility]. Will DC telemetry. 12/21: Patient is having good diuresis with Torsemide and Aldactone. Cannot resume Entresto since our pharmacy does not carry it and patient does not have it with him neither. WBC 14.1. Blood culture no growth, final. Improving degree of legs swelling/pain. Denies fever, chills, sweating. Continue Torsemide and Aldactone. Will write Rx of Entresto upon hospital discharge. Continue Unasyn, will d/c upon hospital discharge. Pending SNF placement. 12/22: Afebrile overnight. WBC 13.0. Cultures no growth to date. Improving degree of legs swelling/pain. Denies fever, chills, sweating. Good energy level. Continue Torsemide and Aldactone. Will write Rx of Entresto upon hospital discharge. Continue Unasyn, will d/c upon hospital discharge. Pending SNF placement. 12/23: Afebrile overnight. WBC 12.0. Cultures no growth to date. Improving degree of legs swelling/pain. Denies fever, chills, sweating. Good energy level. Continue Torsemide and Aldactone. Will write Rx of Entresto upon hospital discharge. Continue Unasyn, will d/c upon hospital discharge. Pending SNF placement. Constitutional Vitals: Vital Signs Temp Pulse Resp BP Pulse Ox O2 Del Method O2 Flow Rate 35.8 C L 104 H 14 95/66 94 Room Air 0 12/23/22 04:22 12/23/22 07:18 12/23/22 07:18 12/23/22 07:18 12/23/22 07:18 12/23/22 07:18 12/22/22 03:07 Period Temp Pulse Resp BP Sys/Whittaker Pulse Ox O2 Del Method O2 Flow Rate Last 24 Hr 35.8 C-36.4 C 52-105 14-24 89-111/64-98 91-100 Room Air-Room Air Intake and Output 12/22/22 12/23/22 12/23/22 19:59 03:59 11:59 Intake Total 980 100 580 Output Total 700 300 Balance 280 100 280 Weight 123.785 kg Intake & Output: Intake & Output 12/22/22 12/23/22 12/23/22 19:59 03:59 11:59 Intake Total 980 100 580 Output Total 700 300 Balance 280 100 280 Weight 123.785 kg Intake: IV 200 100 100 Unasyn 3 gm In Sodium Chloride 200 100 100 0.9% 100 ml @ 200 mls/hr IV Q6H [facility] Rx#:[id number] Oral 780 480 Output: Void Amount 700 300 Other: Meal Lunch Percent of Meal Consumed 100% Urine Appearance Clear Clear Urine Color Yellow Yellow # Voids 1 Head Head exam: Present atraumatic and normal inspection Eye Eye exam: Present normal appearance ENT ENT exam: Present mucous membranes moist and normal external ear exam; Absent normal exam Additional comments: oral thrush Neck Neck exam: Present normal inspection Respiratory Respiratory exam: Present normal respiratory exam Cardiovascular Cardiovascular exam: Present normal rate and rhythm GI/Abdominal GI/Abdominal exam: Present normal bowel sounds Extremities Exam Extremities exam: Present tenderness; Absent normal inspection Additional comments: Erythema, swelling, warmth, tenderness to palpation right > left lower extremities Back Exam Back exam: Present normal inspection Neurological Exam Neurological exam: Present alert and oriented X3 Skin Skin exam: Present erythema, intact and warm Additional comments: Erythema, swelling, warmth, tenderness to palpation right > left lower extremities OBJ DATA Labs 12/23/22 05:13 12/23/22 05:12 Labs: Abnormal Lab Results 12/23/22 12/23/22 12/22/22 05:13 05:12 06:05 WBC 12.0 H MCHC RDW 20.4 H Immature Gran % (Auto) 0.7 H [place] # (Auto) Immature Gran # 0.08 H Absolute Neutrophils Carbon Dioxide 20 L 18 L Anion Gap 19.0 H BUN 47 H 46 H Creatinine 1.6 H 1.5 H Calcium 8.1 L 8.3 L Total Bilirubin 1.4 H 1.4 H Alkaline Phosphatase 252 H 241 H Albumin 3.0 L 2.7 L Albumin/Globulin Ratio 0.8 L 0.7 L 12/22/22 12/21/22 12/21/22 06:05 07:03 05:45 WBC 13.0 H 14.1 H MCHC 30.9 L RDW 20.2 H 20.3 H Immature Gran % (Auto) 1.1 H 1.0 H [place] # (Auto) 1.06 H Immature Gran # 0.14 H 0.14 H Absolute Neutrophils 8.13 H 9.42 H Carbon Dioxide Anion Gap BUN 44 H Creatinine 1.6 H Calcium 8.5 L Total Bilirubin 1.1 H Alkaline Phosphatase 293 H Albumin 3.1 L Albumin/Globulin Ratio 0.9 L Meds: Medications Acetaminophen (Acetaminophen 325 Mg Tablet) 650 mg PO Q6HP PRN; Protocol PRN Reason: Per Pain Protocol/Fever > 101 Hydrocodone Bitart/Acetaminophen (Hydrocodone/Apap 5/325mg Tablet) 1 tab PO Q4HP PRN; Protocol PRN Reason: Per Pain Protocol Last Admin: 12/22/22 11:33 Dose: 1 tab Albuterol/Ipratropium (Ipratropium/Albuterol 3 Ml Ampul.Neb) 3 ml NEB Q6HRT PRN PRN Reason: Wheezing Aspirin (Aspirin 81 Mg Tab.Chew) 81 mg PO DAILY [facility] Last Admin: 12/23/22 08:36 Dose: 81 mg Atorvastatin Calcium (Atorvastatin 40 Mg Tablet) 40 mg PO QHS [facility] Last Admin: 12/22/22 21:13 Dose: 40 mg Budesonide (Budesonide 0.5 Mg/2 Ml Ampul.Neb) 0.5 mg NEB Q12 [facility] Last Admin: 12/22/22 20:18 Dose: 0.5 mg Cetirizine HCl (Cetirizine 10 Mg Tablet) 10 mg PO QDAY [facility] Last Admin: 12/23/22 08:36 Dose: 10 mg Dextrose (Dextrose 50% 50 Ml Vial) 0 ml IV UD PRN PRN Reason: Per Sliding Scale Diagnostic Test (Pha) (Accu-Chek 1 Each Strip) 1 each FS ACHS [facility] Last Admin: 12/23/22 07:14 Dose: 1 each Docusate Sodium (Docusate Sodium 100 Mg Capsule) 100 mg PO BID [facility] Last Admin: 12/23/22 08:37 Dose: Not Given Enoxaparin Sodium (Enoxaparin 40 Mg/0.4 Ml Syringe) 40 mg SQ DAILY [facility] Last Admin: 12/23/22 08:37 Dose: 40 mg Famotidine (Famotidine 20 Mg Tablet) 20 mg PO BID [facility] Last Admin: 12/23/22 08:35 Dose: 20 mg Glucose (Dextrose 31 Gm Oral.Susp) 15 gm PO PRN PRN PRN Reason: Hypoglycemia Ampicillin Sodium/Sulbactam (Sodium 3 gm/ Sodium Chloride) 100 mls @ 200 mls/hr IV Q6H [facility] Last Infusion: 12/23/22 08:47 Dose: Infused Insulin Human Lispro (Insulin Lispro 1 Unit/0.01 Ml Unit) 0 unit SQ ACHS [facility]; Protocol Last Admin: 12/23/22 07:26 Dose: Not Given Lactulose (Lactulose 20 Gm/30 Ml Oral.Rona) 10 gm PO DAILYP PRN PRN Reason: Constipation Metoprolol Succinate (Metoprolol Succinate 25 Mg Tab.Xl.24h) 25 mg PO BID [facility] Last Admin: 12/23/22 08:51 Dose: 25 mg [facility] ([facility] Last Admin: 12/23/22 07:40 Dose: 500 mg Nitroglycerin (Nitroglycerin 0.4 Mg Tab.Subl) 0.4 mg SL Q5M PRN PRN Reason: Chest Pain Nystatin (Nystatin 500,000 Units/5 Ml Oral.Susp) 500,000 units SSP TID [facility] Last Admin: 12/23/22 08:34 Dose: 500,000 units Ondansetron HCl (Ondansetron 4 Mg/2 Ml Vial) 4 mg IV Q4HP PRN; Protocol PRN Reason: Nausea And Vomiting Last Admin: 12/21/22 23:53 Dose: 4 mg Promethazine HCl (Promethazine 25 Mg/Ml Vial) 12.5 mg IM Q6HP PRN; Protocol PRN Reason: Nausea And Vomiting Senna (Sennosides 1 Tablet) 2 tab PO HSP PRN PRN Reason: Constipation Sodium Chloride (0.9 % Sodium Chloride 10 Ml Syringe) 10 ml IV Q8 [facility] Last Admin: 12/23/22 06:09 Dose: 10 ml Spironolactone (Spironolactone 25 Mg Tablet) 12.5 mg PO DAILY [facility] Last Admin: 12/23/22 08:35 Dose: 12.5 mg Torsemide (Torsemide 20 Mg Tablet) 40 mg PO QDAY [facility] Last Admin: 12/23/22 08:37 Dose: 40 mg A/P Assessment and plan (1) COPD exacerbation: Status: Acute (2) Cellulitis: Status: Acute (3) Sepsis: Status: Acute Qualifiers: Sepsis acute organ dysfunction status: without acute organ dysfunction Sepsis type: sepsis due to unspecified organism Qualified Code(s): A41.9 - Sepsis, unspecified organism (4) DM2 (diabetes mellitus, type 2): Status: Acute (5) Stage 2 acute kidney injury: Status: Acute (6) Hyponatremia: Status: Acute (7) Homelessness: Status: Acute (8) Systolic CHF, chronic: Status: Acute Narrative A/P Narrative: Assessment and Plans: 1. Bilateral lower extremities cellulitis with clinical sepsis: Inpatient med surg Exacerbated by stasis dermatitis from CHF Blood culture no growth, final cbc w/ auto diff in the morning to trend WBC Unasyn, discontinue upon hospital discharge Pending SNF placement 2. COPD exacerbation: Finished Prednisone DuoNEB NEB d/c Pulmicort 3. systolic CHF, stable: 2/2 Meth abuse Metoprolol Succinate Resume Torsemide Resume Aldactone Cannot resume Entresto since our pharmacy does not carry it and patient does not have it with him neither, will write Rx of Entresto upon hospital discharge 4. Hyponatremia: RESOLVED Chemistry in the morning to trend serum sodium level 5. T2DM: HgA1c 6.9 Hold any oral hypoglycemics Insulin Lispro [facility] Accu Check [facility] Hypoglycemia protocol Diabetic diet 6. Homelessness: Physical therapy: recs. SNF Will work with field nurse case managermanager technical support worker to find a placement 7. Acute kidney injury: Avoid nephrotoxic agents Saline lock, Resume Torsemide/Aldactone given improving kidney functions Chemistry in the morning to trend kidney functions GI ppx: Pepcid DVT ppx: Lovenox Code status: Full Prognosis: Stable Disposition: inpatient med surg; SNF Time Spent With Patient Time: Total time spent is greater than 50% in coordination of care (as documented) at patient's floor/unit and/or counseling patient: QUALITY Stroke Symptom Onset Unknown: No VTE Deep Vein Thrombosis/Pulmonary Embolism Present on Admission: No
[2022-12-23] MEDS: ONDANSETRON 4 MG/2 ML VIAL IV PRN ×2 (11:31→15:36)
[2022-12-23] MEDS: BUDESONIDE 0.5 MG/2 ML AMPUL.NEB NEB SCH ×2 (12:08→22:05)
--- NOTE | 2022-12-23 14:35 | Internal Med Progress Note ---
SUBJECTIVE Subjective Patient information: Note initiated : 12/23/22 at 2:30 pm Service Date, if different from initiated Date: [] Patient: Billy Gomez 62 y/o M admitted on 12/15/22 for edema to lower extremeties. Chief Complaint: [] Principal diagnosis: Sepsis Interval history: Mr. Gomez is a 62 year old obese male smoker with a complex past medical history significant for congestive heart failure, COPD, mitral valve repair, diabetes mellitus type 2 and BPH who presents to the hospital with vague complaints. When I evaluated the patient this morning, he was not able to talk much due to oral thrush. In general, the patient is quite a poor historian. History is mainly obtained through chart review and from nursing. He presented to the ER complaining of worsening pedal edema due to what he believed was VTE. There is no history of the patient recently being prescribed anticoagulation therapy. Venous duplex was obtained on presentation which was negative for VTE in both extremities. On arrival, the patient was hemodynamically tenuous as he was hypotensive with an SBP in the 70s and 80s and was tachycardic with a heart rate of 110. He was found to have an elevated white blood cell count of 17.4 an d a creatinine of 2.9. The hospitalist service was asked admit the patient for further management and evaluation of his suspected sepsis of unclear etiology. 12/16: The patient is much more alert, interactive and conversive today. He states that his legs are still painful and he is unable to ambulate. The patient states that his oral thrush is better and is able to have more p.o. intake. Discussed the case with RN and social work. 12/17: The patient is resting comfortably in bed. He is looking better day by day. He is a very poor historian overall. He answers a lot of questions with "I do not know" when discussing prior history of polysubstance abuse, the patient did endorse methamphetamine use prior. He does not know if he seen a city constable before. I tried discussing his transesophageal echocardiogram results. Discussed the case with RN. 12/18: The patient is clinically stable and awaiting dispo (homeless) 12/19: Kidney functions continue to improve. Low grade fever Tmax 37.3 overnight. WBC 11.6. Cultures no growth to date. Patient is c/o right lower leg pain and chills. Resume Torsemide given improving kidney functions. Continue to hold Aldactone and Entresto given soft blood pressure. Continue Unasyn while monitoring blood culture results. Continue to work with physical therapy and window caser for placement planning. PT recs. SNF 12/20: Patient is having good diuresis upon resuming torsemide. Latest blood pressure 110/80 mmHg. Patient's leg swellings has also improved. Afebrile overnight. WBC 13.2 this morning. All cultures no growth today. Will resume Aldactone. Continue torsemide. Keep holding Entresto. Continue Unasyn while monitoring blood culture results. Pending SNF placement. We will downgrade patient from PCU to [facility]. Will DC telemetry. 12/21: Patient is having good diuresis with Torsemide and Aldactone. Cannot resume Entresto since our pharmacy does not carry it and patient does not have it with him neither. WBC 14.1. Blood culture no growth, final. Improving degree of legs swelling/pain. Denies fever, chills, sweating. Continue Torsemide and Aldactone. Will write Rx of Entresto upon hospital discharge. Continue Unasyn, will d/c upon hospital discharge. Pending SNF placement. 12/22: Afebrile overnight. WBC 13.0. Cultures no growth to date. Improving degree of legs swelling/pain. Denies fever, chills, sweating. Good energy level. Continue Torsemide and Aldactone. Will write Rx of Entresto upon hospital discharge. Continue Unasyn, will d/c upon hospital discharge. Pending SNF placement. 12/23: Afebrile overnight. WBC 12.0. Cultures no growth to date. Improving degree of legs swelling/pain. Denies fever, chills, sweating. Good energy level. Continue Torsemide and Aldactone. Will write Rx of Entresto upon hospital discharge. Continue Unasyn, will d/c upon hospital discharge. Pending SNF placement. Constitutional Vitals: Vital Signs Temp Pulse Resp BP Pulse Ox O2 Del Method O2 Flow Rate 96.5 F L 104 H 14 95/66 94 Room Air 0 12/23/22 04:22 12/23/22 07:18 12/23/22 07:18 12/23/22 07:18 12/23/22 07:18 12/23/22 07:18 12/22/22 03:07 Period Temp Pulse Resp BP Sys/Whittaker Pulse Ox O2 Del Method O2 Flow Rate Last 24 Hr 96.5 F-97.6 F 52-104 14-20 89-111/64-98 91-99 Room Air-Room Air Intake and Output 12/23/22 12/23/22 12/23/22 03:59 11:59 19:59 Intake Total 100 580 960 Output Total 300 1550 Balance 100 280 -590 Intake & Output: Intake & Output 12/23/22 12/23/22 12/23/22 03:59 11:59 19:59 Intake Total 100 580 960 Output Total 300 1550 Balance 100 280 -590 Intake: IV 100 100 Unasyn 3 gm In Sodium Chloride 100 100 0.9% 100 ml @ 200 mls/hr IV Q6H [facility] Rx#:[id number] Oral 480 960 Output: Void Amount 300 1550 Other: Meal Breakfast Percent of Meal Consumed 75% Feeding Ability Independent Urine Appearance Clear Clear Urine Color Yellow Yellow Exam: General: Alert, Awake, No acute Distress, obese Eyes/N/T: EOMI, Head/Neck: neck supple, CV: RRR, No murmurs, Pulm: Clear b/l, no wheezing/rhonchi/rales Abd: soft, nontender, +BS x4 Ext: no clubbing/cyanosis/edema Neuro: Alert, no focal deficits, moves all extremities, Skin: warm/dry OBJ DATA Labs 12/23/22 05:13 12/23/22 05:12 Labs: Abnormal Lab Results 12/23/22 12/23/22 12/22/22 05:13 05:12 06:05 WBC 12.0 H MCHC RDW 20.4 H Immature Gran % (Auto) 0.7 H [place] # (Auto) Immature Gran # 0.08 H Absolute Neutrophils Carbon Dioxide 20 L 18 L Anion Gap 19.0 H BUN 47 H 46 H Creatinine 1.6 H 1.5 H Calcium 8.1 L 8.3 L Total Bilirubin 1.4 H 1.4 H Alkaline Phosphatase 252 H 241 H Albumin 3.0 L 2.7 L Albumin/Globulin Ratio 0.8 L 0.7 L 12/22/22 12/21/22 12/21/22 06:05 07:03 05:45 WBC 13.0 H 14.1 H MCHC 30.9 L RDW 20.2 H 20.3 H Immature Gran % (Auto) 1.1 H 1.0 H [place] # (Auto) 1.06 H Immature Gran # 0.14 H 0.14 H Absolute Neutrophils 8.13 H 9.42 H Carbon Dioxide Anion Gap BUN 44 H Creatinine 1.6 H Calcium 8.5 L Total Bilirubin 1.1 H Alkaline Phosphatase 293 H Albumin 3.1 L Albumin/Globulin Ratio 0.9 L Meds: Medications Acetaminophen (Acetaminophen 325 Mg Tablet) 650 mg PO Q6HP PRN; Protocol PRN Reason: Per Pain Protocol/Fever > 101 Hydrocodone Bitart/Acetaminophen (Hydrocodone/Apap 5/325mg Tablet) 1 tab PO Q4HP PRN; Protocol PRN Reason: Per Pain Protocol Last Admin: 12/22/22 11:33 Dose: 1 tab Albuterol/Ipratropium (Ipratropium/Albuterol 3 Ml Ampul.Neb) 3 ml NEB Q6HRT PRN PRN Reason: Wheezing Aspirin (Aspirin 81 Mg Tab.Chew) 81 mg PO DAILY [facility] Last Admin: 12/23/22 08:36 Dose: 81 mg Atorvastatin Calcium (Atorvastatin 40 Mg Tablet) 40 mg PO QHS [facility] Last Admin: 12/22/22 21:13 Dose: 40 mg Cetirizine HCl (Cetirizine 10 Mg Tablet) 10 mg PO QDAY [facility] Last Admin: 12/23/22 08:36 Dose: 10 mg Dextrose (Dextrose 50% 50 Ml Vial) 0 ml IV UD PRN PRN Reason: Per Sliding Scale Diagnostic Test (Pha) (Accu-Chek 1 Each Strip) 1 each FS ACHS [facility] Last Admin: 12/23/22 11:24 Dose: 1 each Docusate Sodium (Docusate Sodium 100 Mg Capsule) 100 mg PO BID [facility] Last Admin: 12/23/22 08:37 Dose: Not Given Enoxaparin Sodium (Enoxaparin 40 Mg/0.4 Ml Syringe) 40 mg SQ DAILY [facility] Last Admin: 12/23/22 08:37 Dose: 40 mg Famotidine (Famotidine 20 Mg Tablet) 20 mg PO BID [facility] Last Admin: 12/23/22 08:35 Dose: 20 mg Glucose (Dextrose 31 Gm Oral.Susp) 15 gm PO PRN PRN PRN Reason: Hypoglycemia Ampicillin Sodium/Sulbactam (Sodium 3 gm/ Sodium Chloride) 100 mls @ 200 mls/hr IV Q6H [facility] Last Admin: 12/23/22 11:57 Dose: 200 mls/hr Insulin Human Lispro (Insulin Lispro 1 Unit/0.01 Ml Unit) 0 unit SQ ACHS [facility]; Protocol Last Admin: 12/23/22 11:24 Dose: Not Given Lactulose (Lactulose 20 Gm/30 Ml Oral.Rona) 10 gm PO DAILYP PRN PRN Reason: Constipation Metoprolol Succinate (Metoprolol Succinate 25 Mg Tab.Xl.24h) 25 mg PO BID [facility] Last Admin: 12/23/22 08:51 Dose: 25 mg Naproxen ([facility] 250 Mg Tablet) [facility] Protocol Last Admin: 12/23/22 07:40 Dose: 500 mg Nitroglycerin (Nitroglycerin 0.4 Mg Tab.Subl) 0.4 mg SL Q5M PRN PRN Reason: Chest Pain Nystatin (Nystatin 500,000 Units/5 Ml Oral.Susp) 500,000 units SSP TID [facility] Last Admin: 12/23/22 08:34 Dose: 500,000 units Ondansetron HCl (Ondansetron 4 Mg/2 Ml Vial) 4 mg IV Q4HP PRN; Protocol PRN Reason: Nausea And Vomiting Last Admin: 12/23/22 11:31 Dose: 4 mg Promethazine HCl (Promethazine 25 Mg/Ml Vial) 12.5 mg IM Q6HP PRN; Protocol PRN Reason: Nausea And Vomiting Senna (Sennosides 1 Tablet) 2 tab PO HSP PRN PRN Reason: Constipation Sodium Chloride (0.9 % Sodium Chloride 10 Ml Syringe) 10 ml IV Q8 [facility] Last Admin: 12/23/22 06:09 Dose: 10 ml Spironolactone (Spironolactone 25 Mg Tablet) 12.5 mg PO DAILY [facility] Last Admin: 12/23/22 08:35 Dose: 12.5 mg Torsemide (Torsemide 20 Mg Tablet) 40 mg PO QDAY [facility] Last Admin: 12/23/22 08:37 Dose: 40 mg A/P Narrative A/P Narrative: Assessment and Plans: *b/l LE cellulitis w/Sepsis: Exacerbated by stasis dermatitis from CHF -Blood culture no growth, final -cbc w/ auto diff in the morning to trend WBC -Unasyn, discontinue upon hospital discharge *COPD exacerbation: -Finished Prednisone, DuoNEB NEB prn, Pulmicort *h/o systolic(20%)CHF, stable: 2/2 Meth abuse -Metoprolol Succinate, Resume Torsemide/Aldactone -Cannot resume Entresto since our pharmacy does not carry it and patient does not have with him *Hyponatremia: RESOLVED -Chemistry in the morning to trend serum sodium level *T2DM: -HgA1c 6.9 -Hold any oral hypoglycemics, SSI, Hypoglycemia protocol, Diabetic diet *Homelessness: -Physical therapy: recs. SNF -Will work with window caserhedis manager worker to find a placement *AGUILA on likely CKDIII: -Avoid nephrotoxic agents -Resume Torsemide/Aldactone given improving kidney functions -Chemistry in the morning to trend kidney functions *Obese: BMI 36 *GERD: pepcid *Generalized weakness/deconditioning: -pt/ot -CM for SNF placement *ppx: Lovenox Code status: Movie Editor Spent With Patient Time: Total time spent is greater than 50% in coordination of care (as documented) at patient's floor/unit and/or counseling patient: QUALITY Stroke Symptom Onset Unknown: No VTE Deep Vein Thrombosis/Pulmonary Embolism Present on Admission: No
[2022-12-23] MEDS: HYDROcodone/APAP 5/325MG TABLET PO PRN ×2 (15:36→20:53)
[2022-12-23] MEDS: ATORVASTATIN 40 MG TABLET PO SCH (20:44)
[2022-12-23] MEDS ORDERED: BUDESONIDE 1 PUFF INHALER INH SCH (21:00)
[2022-12-23] MEDS ORDERED: BUDESONIDE 0.5 MG/2 ML AMPUL.NEB NEB SCH (21:00)
[2022-12-24] MEDS: AMPICILLIN SODIUM/SULBACTAM NA 3 GM in 0.9 % SODIUM CHLORIDE 100 ML IV SCH ×2 (02:15→07:17)
[2022-12-24] MEDS: 0.9 % SODIUM CHLORIDE 10 ML SYRINGE IV SCH (05:58)
[2022-12-24] MEDS: INSULIN LISPRO 1 UNIT/0.01 ML UNIT SQ SCH (07:20)
--- NOTE | 2022-12-24 08:27 | Internal Med Progress Note ---
SUBJECTIVE Subjective Patient information: Note initiated : 12/24/22 at 8:25 am Service Date, if different from initiated Date: [] Patient: Billy Gomez 62 y/o M admitted on 12/15/22 for edema to lower extremeties. Chief Complaint: [] Principal diagnosis: Sepsis Interval history: Mr. Gomez is a 62 year old obese male smoker with a complex past medical history significant for congestive heart failure, COPD, mitral valve repair, diabetes mellitus type 2 and BPH who presents to the hospital with vague complaints. When I evaluated the patient this morning, he was not able to talk much due to oral thrush. In general, the patient is quite a poor historian. History is mainly obtained through chart review and from nursing. He presented to the ER complaining of worsening pedal edema due to what he believed was VTE. There is no history of the patient recently being prescribed anticoagulation therapy. Venous duplex was obtained on presentation which was negative for VTE in both extremities. On arrival, the patient was hemodynamically tenuous as he was hypotensive with an SBP in the 70s and 80s and was tachycardic with a heart rate of 110. He was found to have an elevated white blood cell count of 17.4 an d a creatinine of 2.9. The hospitalist service was asked admit the patient for further management and evaluation of his suspected sepsis of unclear etiology. 12/16: The patient is much more alert, interactive and conversive today. He states that his legs are still painful and he is unable to ambulate. The patient states that his oral thrush is better and is able to have more p.o. intake. Discussed the case with RN and social work. 12/17: The patient is resting comfortably in bed. He is looking better day by day. He is a very poor historian overall. He answers a lot of questions with "I do not know" when discussing prior history of polysubstance abuse, the patient did endorse methamphetamine use prior. He does not know if he seen a airworthiness inspector before. I tried discussing his transesophageal echocardiogram results. Discussed the case with RN. 12/18: The patient is clinically stable and awaiting dispo (homeless) 12/19: Kidney functions continue to improve. Low grade fever Tmax 37.3 overnight. WBC 11.6. Cultures no growth to date. Patient is c/o right lower leg pain and chills. Resume Torsemide given improving kidney functions. Continue to hold Aldactone and Entresto given soft blood pressure. Continue Unasyn while monitoring blood culture results. Continue to work with physical therapy and onsite case manager for placement planning. PT recs. SNF 12/20: Patient is having good diuresis upon resuming torsemide. Latest blood pressure 110/80 mmHg. Patient's leg swellings has also improved. Afebrile overnight. WBC 13.2 this morning. All cultures no growth today. Will resume Aldactone. Continue torsemide. Keep holding Entresto. Continue Unasyn while monitoring blood culture results. Pending SNF placement. We will downgrade patient from PCU to [facility]. Will DC telemetry. 12/21: Patient is having good diuresis with Torsemide and Aldactone. Cannot resume Entresto since our pharmacy does not carry it and patient does not have it with him neither. WBC 14.1. Blood culture no growth, final. Improving degree of legs swelling/pain. Denies fever, chills, sweating. Continue Torsemide and Aldactone. Will write Rx of Entresto upon hospital discharge. Continue Unasyn, will d/c upon hospital discharge. Pending SNF placement. 12/22: Afebrile overnight. WBC 13.0. Cultures no growth to date. Improving degree of legs swelling/pain. Denies fever, chills, sweating. Good energy level. Continue Torsemide and Aldactone. Will write Rx of Entresto upon hospital discharge. Continue Unasyn, will d/c upon hospital discharge. Pending SNF placement. 12/23: Afebrile overnight. WBC 12.0. Cultures no growth to date. Improving degree of legs swelling/pain. Denies fever, chills, sweating. Good energy level. Continue Torsemide and Aldactone. Will write Rx of Entresto upon hospital discharge. Continue Unasyn, will d/c upon hospital discharge. Pending SNF placement. 12/24 Constitutional Vitals: Vital Signs Temp Pulse Resp BP Pulse Ox O2 Del Method O2 Flow Rate 96.9 F L 101 H 22 102/78 94 Room Air 0 12/24/22 04:00 12/24/22 04:00 12/24/22 04:00 12/24/22 04:00 12/24/22 04:00 12/24/22 04:00 12/22/22 03:07 Period Temp Pulse Resp BP Sys/Whittaker Pulse Ox O2 Del Method O2 Flow Rate Last 24 Hr 96.9 F-97.7 F 90-104 14-22 102-116/77-97 90-97 Room Air-Room Air Intake and Output 12/23/22 12/24/22 12/24/22 19:59 03:59 11:59 Intake Total 1900 100 720 Output Total 2900 450 Balance -1000 100 270 Weight 124.369 kg Intake & Output: Intake & Output 12/23/22 12/24/22 12/24/22 19:59 03:59 11:59 Intake Total 1900 100 720 Output Total 2900 450 Balance -1000 100 270 Weight 124.369 kg Intake: IV 200 100 Unasyn 3 gm In Sodium Chloride 200 100 0.9% 100 ml @ 200 mls/hr IV Q6H [facility] Rx#:[id number] Oral 1700 720 Output: Void Amount 2900 450 Other: Meal Dinner snack Percent of Meal Consumed 75% 100 Feeding Ability Independent Independent Nourishment/Supplement name jose cruz Urine Appearance Clear Clear Urine Color Yellow Dark Yaritza Urine Odor Normal # Voids 1 Exam: General: Alert, Awake, No acute Distress, obese Eyes/N/T: EOMI, Head/Neck: neck supple, CV: RRR, No murmurs, Pulm: Clear b/l, no wheezing/rhonchi/rales Abd: soft, nontender, +BS x4 Ext: no clubbing/cyanosis/edema Neuro: Alert, no focal deficits, moves all extremities, Skin: warm/dry OBJ DATA Labs 12/23/22 05:13 12/23/22 05:12 Labs: Abnormal Lab Results 12/23/22 12/23/22 12/22/22 05:13 05:12 06:05 WBC 12.0 H RDW 20.4 H Immature Gran % (Auto) 0.7 H Immature Gran # 0.08 H Absolute Neutrophils Carbon Dioxide 20 L 18 L Anion Gap 19.0 H BUN 47 H 46 H Creatinine 1.6 H 1.5 H Calcium 8.1 L 8.3 L Total Bilirubin 1.4 H 1.4 H Alkaline Phosphatase 252 H 241 H Albumin 3.0 L 2.7 L Albumin/Globulin Ratio 0.8 L 0.7 L 12/22/22 12/21/22 06:05 07:03 WBC 13.0 H RDW 20.2 H Immature Gran % (Auto) 1.1 H Immature Gran # 0.14 H Absolute Neutrophils 8.13 H Carbon Dioxide Anion Gap BUN 44 H Creatinine 1.6 H Calcium 8.5 L Total Bilirubin 1.1 H Alkaline Phosphatase 293 H Albumin 3.1 L Albumin/Globulin Ratio 0.9 L Meds: Medications Acetaminophen (Acetaminophen 325 Mg Tablet) 650 mg PO Q6HP PRN; Protocol PRN Reason: Per Pain Protocol/Fever > 101 Hydrocodone Bitart/Acetaminophen (Hydrocodone/Apap 5/325mg Tablet) 1 tab PO Q4HP PRN; Protocol PRN Reason: Per Pain Protocol Last Admin: 12/23/22 20:53 Dose: 1 tab Albuterol/Ipratropium (Ipratropium/Albuterol 3 Ml Ampul.Neb) 3 ml NEB Q6HRT PRN PRN Reason: Wheezing Aspirin (Aspirin 81 Mg Tab.Chew) 81 mg PO DAILY [facility] Last Admin: 12/23/22 08:36 Dose: 81 mg Atorvastatin Calcium (Atorvastatin 40 Mg Tablet) 40 mg PO QHS [facility] Last Admin: 12/23/22 20:44 Dose: 40 mg Budesonide (Budesonide 0.5 Mg/2 Ml Ampul.Neb) 0.5 mg NEB Q12 [facility] Last Admin: 12/23/22 22:05 Dose: Not Given Cetirizine HCl (Cetirizine 10 Mg Tablet) 10 mg PO QDAY [facility] Last Admin: 12/23/22 08:36 Dose: 10 mg Dextrose (Dextrose 50% 50 Ml Vial) 0 ml IV UD PRN PRN Reason: Per Sliding Scale Diagnostic Test (Pha) (Accu-Chek 1 Each Strip) 1 each FS ACHS [facility] Last Admin: 12/24/22 07:18 Dose: 1 each Docusate Sodium (Docusate Sodium 100 Mg Capsule) 100 mg PO BID [facility] Last Admin: 12/23/22 20:49 Dose: Not Given Enoxaparin Sodium (Enoxaparin 40 Mg/0.4 Ml Syringe) 40 mg SQ DAILY [facility] Last Admin: 12/23/22 08:37 Dose: 40 mg Famotidine (Famotidine 20 Mg Tablet) 20 mg PO BID [facility] Last Admin: 12/23/22 20:44 Dose: 20 mg Glucose (Dextrose 31 Gm Oral.Susp) 15 gm PO PRN PRN PRN Reason: Hypoglycemia Ampicillin Sodium/Sulbactam (Sodium 3 gm/ Sodium Chloride) 100 mls @ 200 mls/hr IV Q6H [facility] Last Admin: 12/24/22 07:17 Dose: 200 mls/hr Insulin Human Lispro (Insulin Lispro 1 Unit/0.01 Ml Unit) 0 unit SQ ACHS [facility]; Protocol Last Admin: 12/24/22 07:20 Dose: Not Given Lactulose (Lactulose 20 Gm/30 Ml Oral.Rona) 10 gm PO DAILYP PRN PRN Reason: Constipation Metoprolol Succinate (Metoprolol Succinate 25 Mg Tab.Xl.24h) 25 mg PO BID [facility] Last Admin: 12/23/22 20:44 Dose: 25 mg Naproxen (Naproxen 250 Mg Tablet) 500 mg PO BIDCC [facility]; Protocol Last Admin: 12/23/22 17:57 Dose: 500 mg Nicotine (Nicotine 14 Mg Patch) 14 mg TOPICAL DAILY@1000 [facility] Nitroglycerin (Nitroglycerin 0.4 Mg Tab.Subl) 0.4 mg SL Q5M PRN PRN Reason: Chest Pain Nystatin (Nystatin 500,000 Units/5 Ml Oral.Susp) 500,000 units SSP TID [facility] Last Admin: 12/23/22 20:44 Dose: 500,000 units Ondansetron HCl (Ondansetron 4 Mg/2 Ml Vial) 4 mg IV Q4HP PRN; Protocol PRN Reason: Nausea And Vomiting Last Admin: 12/23/22 15:36 Dose: 4 mg Promethazine HCl (Promethazine 25 Mg/Ml Vial) 12.5 mg IM Q6HP PRN; Protocol PRN Reason: Nausea And Vomiting Senna (Sennosides 1 Tablet) 2 tab PO HSP PRN PRN Reason: Constipation Sodium Chloride (0.9 % Sodium Chloride 10 Ml Syringe) 10 ml IV Q8 [facility] Last Admin: 12/24/22 05:58 Dose: 10 ml Spironolactone (Spironolactone 25 Mg Tablet) 12.5 mg PO DAILY [facility] Last Admin: 12/23/22 08:35 Dose: 12.5 mg Torsemide (Torsemide 20 Mg Tablet) 40 mg PO QDAY [facility] Last Admin: 12/23/22 08:37 Dose: 40 mg A/P Narrative A/P Narrative: Assessment and Plans: *b/l LE cellulitis w/Sepsis: Exacerbated by stasis dermatitis from CHF -Blood culture no growth, final -cbc w/ auto diff in the morning to trend WBC -Unasyn, discontinue upon hospital discharge *COPD exacerbation: -Finished Prednisone, DuoNEB NEB prn, Pulmicort *h/o systolic(20%)CHF, stable: 2/2 Meth abuse -Metoprolol Succinate, Resume Torsemide/Aldactone -Cannot resume Entresto since our pharmacy does not carry it and patient does not have with him *Hyponatremia: RESOLVED -Chemistry in the morning to trend serum sodium level *T2DM: -HgA1c 6.9 -Hold any oral hypoglycemics, SSI, Hypoglycemia protocol, Diabetic diet *Homelessness: -Physical therapy: recs. SNF -Will work with onsite case managercustodial operations manager worker to find a placement *AGUILA on likely CKDIII: -Avoid nephrotoxic agents -Resume Torsemide/Aldactone given improving kidney functions -Chemistry in the morning to trend kidney functions *Obese: BMI 36 *GERD: pepcid *Generalized weakness/deconditioning: -pt/ot -CM for SNF placement *ppx: Lovenox Code status: Insulator Technician Spent With Patient Time: Total time spent is greater than 50% in coordination of care (as documented) at patient's floor/unit and/or counseling patient: QUALITY Stroke Symptom Onset Unknown: No VTE Deep Vein Thrombosis/Pulmonary Embolism Present on Admission: No
[2022-12-24] MEDS: BUDESONIDE 0.5 MG/2 ML AMPUL.NEB NEB SCH (09:23)
--- NOTE | 2022-12-24 09:26 | Discharge Summary ---
Discharge Provider Provider IMPORTANT FOLLOW-UP INFORMATION FOR PCP: Patient information: Note initiated : 12/24/22 at 9:24 am Service Date, if different from initiated Date: [] Patient: Billy Gomez 62 y/o M admitted on 12/15/22 for edema to lower extremeties. Chief Complaint: [] Date of admission: 12/15/22 01:48 Discharge date: 12/24/22 Primary care physician: PCP No Consults: 12/14/22 Consult to Physician [CONS] Stat Comment: Consulting Provider: Shayy Amador Reason For Exam: Physician to Consult 12/15/22 20:50 Consult to Physician [CONS] Routine Comment: Consulting Provider: Norberto Roger Reason For Exam: Physician to Consult COURSE Hospital Course Hospital course: Interval history: Mr. Gomez is a 62 year old obese male smoker with a complex past medical history significant for congestive heart failure, COPD, mitral valve repair, diabetes mellitus type 2 and BPH who presents to the hospital with vague complaints. When I evaluated the patient this morning, he was not able to talk much due to oral thrush. In general, the patient is quite a poor historian. History is mainly obtained through chart review and from nursing. He presented to the ER complaining of worsening pedal edema due to what he believed was VTE. There is no history of the patient recently being prescribed anticoagulation therapy. Venous duplex was obtained on presentation which was negative for VTE in both extremities. On arrival, the patient was hemodynamically tenuous as he was hypotensive with an SBP in the 70s and 80s and was tachycardic with a heart rate of 110. He was found to have an elevated white blood cell count of 17.4 and a creatinine of 2.9. The hospitalist service was asked admit the patient for further management and evaluation of his suspected sepsis of unclear etiology. 12/16: The patient is much more alert, interactive and conversive today. He states that his legs are still painful and he is unable to ambulate. The patient states that his oral thrush is better and is able to have more p.o. intake. Discussed the case with RN and social work. 12/17: The patient is resting comfortably in bed. He is looking better day by day. He is a very poor historian overall. He answers a lot of questions with "I do not know" when discussing prior history of polysubstance abuse, the patient did endorse methamphetamine use prior. He does not know if he seen a casting house worker before. I tried discussing his transesophageal echocardiogram results. Discussed the case with RN. 12/18: The patient is clinically stable and awaiting dispo (homeless) 12/19: Kidney functions continue to improve. Low grade fever Tmax 37.3 overnight. WBC 11.6. Cultures no growth to date. Patient is c/o right lower leg pain and chills. Resume Torsemide given improving kidney functions. Continue to hold Aldactone and Entresto given soft blood pressure. Continue Unasyn while monitoring blood culture results. Continue to work with physical therapy and spring encaser for placement planning. PT recs. SNF 12/20: Patient is having good diuresis upon resuming torsemide. Latest blood pressure 110/80 mmHg. Patient's leg swellings has also improved. Afebrile overnight. WBC 13.2 this morning. All cultures no growth today. Will resume Aldactone. Continue torsemide. Keep holding Entresto. Continue Unasyn while monitoring blood culture results. Pending SNF placement. We will downgrade patient from PCU to [facility]. Will DC telemetry. 12/21: Patient is having good diuresis with Torsemide and Aldactone. Cannot resume Entresto since our pharmacy does not carry it and patient does not have it with him neither. WBC 14.1. Blood culture no growth, final. Improving degree of legs swelling/pain. Denies fever, chills, sweating. Continue Torsemide and Aldactone. Will write Rx of Entresto upon hospital discharge. Continue Unasyn, will d/c upon hospital discharge. Pending SNF placement. 12/22: Afebrile overnight. WBC 13.0. Cultures no growth to date. Improving degree of legs swelling/pain. Denies fever, chills, sweating. Good energy level. Continue Torsemide and Aldactone. Will write Rx of Entresto upon hospital discharge. Continue Unasyn, will d/c upon hospital discharge. Pending SNF placement. 12/23: Afebrile overnight. WBC 12.0. Cultures no growth to date. Improving degree of legs swelling/pain. Denies fever, chills, sweating. Good energy level. Continue Torsemide and Aldactone. Will write Rx of Entresto upon hospital discharge. Continue Unasyn, will d/c upon hospital discharge. Pending SNF placement. 2/3 No overnight event or new complaints. Patient able to be placed in group home facility today. Assessment and Plans: *b/l LE cellulitis w/Sepsis: Exacerbated by stasis dermatitis from CHF -Unasyn, discontinue upon hospital discharge *COPD exacerbation: *h/o systolic(20%)CHF, stable: 2/2 Meth abuse *Hyponatremia: RESOLVED *T2DM: *Homelessness: -Physical therapy: recs. SNF -Will work with spring encaserlead project manager worker to find a placement *AGUILA on likely CKDIII: *Obese: BMI 36 *GERD: pepcid *Generalized weakness/deconditioning: -pt/ot -CM for SNF placement Time Spent With Patient Discharge diagnosis: Cellulitis COPD Secondary discharge diagnosis: Heart failure hyponatremia diabetes homelessness acute on chronic kidney disease obesity GERD generalized weakness Time Spent with Patient Time attestation: Total time spent providing and/or coordinating discharge services: Time spent: Greater than 30 minutes EXAM Constitutional Vitals: Temp Pulse Resp BP Pulse Ox O2 Del Method O2 Flow Rate 96.9 F L 101 H 22 102/78 94 Room Air 0 12/24/22 04:00 12/24/22 04:00 12/24/22 04:00 12/24/22 04:00 12/24/22 04:00 12/24/22 04:00 12/22/22 03:07 Discharge Plan Patient/Caregiver Discharge Instructions Activity: increase activity as tolerated Diet: Consistent Carbohydrate Activity Restrictions/Additional Instructions: Follow-up with PCP in 3 to 7 days. Prescriptions: New hydrocodone-acetaminophen 5-325 mg Tablet 1 tab PO Q6HP PRN (Reason: Per Pain Protocol) Qty: 10 0RF Continued atorvastatin 40 mg Tablet 40 mg PO QHS cetirizine 10 mg Tablet 10 mg PO QDAY spironolactone 25 mg Tablet 12.5 mg PO DAILY famotidine 20 mg Tablet 20 mg PO BID potassium chloride 30 mEq/15 mL Liquid 30 meq PO BID nitroglycerin 0.4 mg Tablet, Sublingual 0.4 mg SUBLINGUAL Q5M PRN (Reason: Chest Pain) Rx Instructions: do not exceed 3 doses per episode metoprolol succinate 25 mg Tablet Extended Release 24 Hr 25 mg PO BID naproxen 500 mg Tablet 500 mg PO BID acetaminophen [Tylenol] 325 mg Capsule 500 mg PO Q6H PRN (Reason: Pain) aspirin 81 mg Capsule 81 mg PO DAILY torsemide 40 mg Tablet 40 mg PO QDAY Jardiance 10 mg PO DAILY Entresto 24-26 mg Tablet 0.5 tab PO BID budesonide-formoterol 160-4.5 mcg/actuation Hfa Aerosol Inhaler 2 puff INHALATION Q12H Other Ambulatory Orders: Primary Care Provider - Referral (NOW) Timeframe: 20221230 Location: None Selected Ordered By: Shayy Amador Follow Up Plan Patient Disposition: Xfer SNF Prognosis: Fair Rehab Potential: Fair I certify that the patient requires SNF services: Yes Overall status at discharge: patient is progressing back to baseline Discharge Orders: Discharge Order (Routine); Ordered 12/24/22 Ordered By: Bebo Daniels [facility] VTE Deep Vein Thrombosis/Pulmonary Embolism Present on Admission: No
[2022-12-24] MEDS: ASPIRIN 81 MG TAB.CHEW PO SCH (09:52)
[2022-12-24] MEDS: ENOXAPARIN 40 MG/0.4 ML SYRINGE SQ SCH (09:52)
[2022-12-24] MEDS: NYSTATIN 500,000 UNITS/5 ML ORAL.SUSP SSP SCH (09:52)
[2022-12-24] MEDS: FAMOTIDINE 20 MG TABLET PO SCH (09:53)
[2022-12-24] MEDS: DOCUSATE SODIUM 100 MG CAPSULE PO SCH ×2 (09:53→09:56)
[2022-12-24] MEDS: NAPROXEN 250 MG TABLET PO SCH (09:53)
[2022-12-24] MEDS: METOPROLOL SUCCINATE 25 MG TAB.XL.24H PO SCH (09:53)
[2022-12-24] MEDS: CETIRIZINE 10 MG TABLET PO SCH (09:53)
[2022-12-24] MEDS: SPIRONOLACTONE 25 MG TABLET PO SCH (10:14)
[2022-12-24] MEDS: TORSEMIDE 20 MG TABLET PO SCH (10:14)
[2022-12-24] MEDS: ONDANSETRON 4 MG/2 ML VIAL IV PRN (10:23)
[2022-12-24] MEDS ORDERED: NICOTINE 14 MG PATCH TOPICAL SCH (17:49)
== END 2022-12-24 11:00 | DRG 871 ==
LOC: ED 21:30 → ICU 12-15 01:48 → MEDSUR 12-22 14:50
PROVIDERS: ADMIT Student in an Organized Health Care Education/Training Program; ATTEND Student in an Organized Health Care Education/Training Program